=== PATIENT | male | born 1955 | race Caucasian/White ===

== ENCOUNTER 2020-08-24 14:19 | Inpatient (IN) | payer OTHER, SELFPAY ==
[2020-08-24] VITALS (43 sets, daily range): BP systolic 147–185; BP diastolic 80–110; PULSE 85–116; RESP 22–50; TEMP 36.1–38.1; O2SAT 82–98; BMI 37.3
--- NOTE | 2020-08-24 14:27 | DI.RAD.S_ITS ---
PROCEDURE: XR CHEST 1V INDICATIONS: flu-like symptoms COVID POSS TECHNIQUE: One view of the chest was acquired. COMPARISON: None. FINDINGS: Surgical changes and devices: None. Lungs and pleura: Bilateral airspace infiltrates consistent with bilateral pneumonia or pulmonary edema. No pleural effusions or pneumothorax. Mediastinum: Mediastinal contours appear normal. Heart size is moderately increased. Bones and chest wall: No suspicious bony lesions. Overlying soft tissues appear unremarkable. IMPRESSION: Bilateral airspace infiltrates consistent with bilateral pneumonia. There is moderate cardiomegaly. A differential diagnosis is pulmonary edema. Dictated by: Deon De La Cruz M.D. on 08/24/2020 at 15:29 Approved by: Deon De La Cruz M.D. on 08/24/2020 at 15:40
[2020-08-24 14:53] LABS: Add Manual Diff / Slide Review NO; Basophils Absolute Auto 0 /uL (0-100); Basophils Percent Auto 0.2 % (0-2); Eosinophils Absolute Auto 0 /uL (0-450); Hematocrit 42.2 % (41-53); Hemoglobin 14.4 g/dL (13.5-17.5); Lymphocytes Absolute Auto 500 /uL (1100-4500); Lymphocytes Percent Auto 5.3 % (25-40); Mean Corpuscular HGB Conc 34.1 % (30-36); Mean Corpuscular Hemoglobin 28.8 PG (26-34); Mean Corpuscular Volume 84.6 fL (80-100); Monocytes Absolute Auto 400 /uL (0-900); Monocytes Percent Auto 4.6 % (3-14); Neutrophils Absolute Auto 7700 /uL (1500-7000); Neutrophils Percent Auto 89.9 % (50-75); Platelet Count 195 X10^3/uL (150-400); Red Blood Cell Count 4.99 X10^6/uL (4.5-5.9); White Blood Cell Count 8.6 X10^3/uL (4.5-11.0)
[2020-08-24 15:04] LABS: HCO3 ABG 25 mmol/L (22-26); PCO2 ABG 30.1 mmHg (35-45); PO2 ABG 57 mmHg (80-100); pH ABG 7.52 (7.35-7.45)
[2020-08-24 15:05] LABS: Fractionated Inspired Oxygen 44; Oxygen Saturation ABG 93 % (95-100); TCO2 ABG 26 mmol/L (21-31)
--- NOTE | 2020-08-24 15:11 | ED.SOB ---
HPI - SOB/Dyspnea General Chief Complaint: Fever Stated Complaint: REFERRED BY PCP FOR LUNG CHECK, COVID+ Time Seen by Provider: 08/24/20 14:33 Source: patient Mode of arrival: Wheelchair Limitations: no limitations History of Present Illness HPI Narrative: Patient is a 65-year-old male with history of hypertension who presents with known COVID and increasing shortness of breath. He said he actually started having some very mild symptoms about 2 weeks ago however he was in [place] at the time stay return from [place] 1 week ago he was tested 5 days ago and has had progressing increasing shortness of breath. He is noted to have respiratory rate of 50 and an O2 of 82% on room air upon arrival to the emergency department. Immediately he is placed on high-flow nasal cannula and seems to be doing better. He denies any loss of taste or smell. He denies any chest pain. Related Data Home Medications Medication Instructions Recorded Confirmed losartan-hydrochlorothiazide 1 tab PO DAILY 08/24/20 08/24/20 Allergies Allergy/AdvReac Type Severity Reaction Status Date / Time No Known Drug Allergies Allergy Verified 08/24/20 14:26 Review of Systems Review of Systems ROS Unobtainable: All systems reviewed & are unremarkable except as noted in HPI and below Constitutional Constitutional: Reports body ache(s), Reports chills, Reports fatigue, Reports fever(s) and Denies frequent falls Eyes Eyes: Denies change in vision, Denies eye discharge, Denies irritation and Denies loss of vision ENT Ears, Nose, Mouth, and Throat: Denies dizziness Cardiovascular Cardiovascular: Denies chest pain, Denies irregular heart rhythm, Denies lightheadedness, Reports dyspnea and Reports dyspnea on exertion Respiratory Respiratory: Reports as per HPI, Reports cough, Reports dyspnea and Reports dyspnea on exertion Gastrointestinal Gastrointestinal: Denies abdominal pain, Denies change in bowel habits, Denies diarrhea, Denies nausea and Denies vomiting Musculoskeletal Musculoskeletal: Reports myalgias Integumentary/Breasts Skin/Breast: Denies pruritus, Denies erythema, Denies rash and Denies wounds Neurologic Neurologic: Denies abnormal speech, Denies dizziness, Denies frequent falls and Denies loss of vision Endocrine Endocrine: Reports fatigue Patient History Medical History Hypertension Surgical History H/O oral surgery Family History Mother Hypertension Social History Smoking Status: Former smoker Smoking Status: Former smoker alcohol intake frequency: 0-2 drinks per day Substance Use Type: does not use Exam Initial Vital Signs Initial Vital Signs: Vital Signs Temperature 100.5 F H 08/24/20 14:21 Pulse Rate 116 H 08/24/20 14:21 Respiratory Rate 50 H 08/24/20 14:21 Blood Pressure 171/104 H 08/24/20 14:21 Pulse Oximetry 82 L 08/24/20 14:21 GENERAL: Alert 65-year-old male appears to not feel well but now on high-flow nasal cannula and in no acute distress. HEENT: Head atraumatic,EOMI, pupils reactive, face symmetric, moist mucous membranes CARDIOVASCULAR: Regular rate and rhythm without murmurs, rubs or gallops. RESPIRATORY: Coarse breath sounds bilaterally, seems to be breathing easier now on high-flow nasal cannula ABDOMEN: Soft, nontender. Normoactive bowel sounds all 4 quadrants. No guarding or rebound. EXTREMITIES: Normal range of motion, no clubbing or edema. Neurovascularly intact NEUROLOGICAL: Alert and oriented x4 SKIN: Warm, dry, no laceration, no petechiae, no rashes or lesions. Course Orders Ordered: ED Orders 08/24/20 14:27 XR chest 1V Stat EKG-12 Lead Stat 08/24/20 14:40 C-Reactive Protein Quant Stat Complete Blood Count AUTO DIFF Stat Comprehensive Metabolic Panel Stat D Dimer Stat Ferritin Stat Lactate (Lactic Acid) Stat Lactate Dehydrogenase Stat NT-proBNP (BNP-Adult 18+) Stat Procalcitonin Stat Troponin & CK Cardiac Panel Stat 08/24/20 14:48 ABG [Arterial Blood Gas] Stat Blood Culture Stat Acetaminophen (Acetaminophen 325 Mg Tablet) 650 mg PO Q6HR PRN PRN Reason: Fever/Mild Pain (1-3) Dexamethasone (Dexamethasone 10 Mg/Ml Vial) 6 mg IV DAILY CARMELA Enoxaparin Sodium (Enoxaparin 60 Mg/0.6 Ml Syringe) 120 mg SUBCUT BID CARMELA Remdesivir 100 mg/ Sodium (Chloride) 250 mls @ 250 mls/hr IV 1500 CARMELA Stop: 09/02/20 15:59 Ibuprofen (Ibuprofen 600 Mg Tablet) 600 mg PO Q6HR PRN PRN Reason: Fever/Mild Pain (1-3) Naloxone HCl (Naloxone 0.4 Mg/Ml Vial) 0.2 mg IV Q2MIN PRN PRN Reason: Opiate Reversal Ondansetron HCl (Ondansetron 4 Mg Odt) 4 mg PO Q8HR PRN PRN Reason: Nausea And Vomiting Oxycodone HCl (Oxycodone Ir 5 Mg Tablet) 5 mg PO Q4HR PRN PRN Reason: Pain, Moderate (4-6) Discontinued Medications Dexamethasone (Dexamethasone 10 Mg/Ml Vial) 10 mg IV NOW ONE Stop: 08/24/20 15:14 Last Admin: 08/24/20 15:18 Dose: 10 mg Documented by: BETHANY Enoxaparin Sodium (Enoxaparin 40 Mg/0.4 Ml Syringe) 40 mg SUBCUT DAILY [facility] Furosemide (Furosemide 20 Mg Tablet) 20 mg PO NOW ONE Stop: 08/24/20 17:33 Sodium Chloride (Normal Saline 0.9%) 1,000 mls @ 125 mls/hr IV CONT CARMELA Last Infusion: 08/24/20 18:05 Dose: 0 mls/hr Documented by: Admin: 08/24/20 15:18 Dose: 125 mls/hr Documented by: BETHANY Remdesivir 200 mg/ Sodium (Chloride) 250 mls @ 250 mls/hr IV NOW ONE Stop: 08/24/20 15:14 Last Infusion: 08/24/20 17:02 Dose: 0 mls/hr Documented by: Admin: 08/24/20 15:33 Dose: 250 mls/hr Documented by: BETHANY Potassium Chloride (Potassium Chloride 20 Meq Tab) 40 meq PO NOW ONE Stop: 08/24/20 16:49 Last Admin: 08/24/20 18:05 Dose: 40 meq Documented by: BETHANY Vital Signs Vital signs: Vital Signs - 8 hr 08/24/20 14:21 08/24/20 14:30 08/24/20 14:46 Temperature 100.5 F H Pulse Rate 116 H 108 H 112 H Respiratory Rate 50 H 48 H 35 H Blood Pressure 171/104 H 165/101 H Pulse Oximetry 82 L 85 L 91 08/24/20 14:50 08/24/20 14:55 08/24/20 15:00 Temperature Pulse Rate 110 H 108 H 101 H Respiratory Rate 31 H 25 H 26 H Blood Pressure 166/93 H Pulse Oximetry 92 88 L 96 08/24/20 15:05 08/24/20 15:10 08/24/20 15:15 Temperature Pulse Rate 108 H 111 H 109 H Respiratory Rate 32 H 28 H 24 Blood Pressure 168/110 H Pulse Oximetry 95 96 98 08/24/20 15:20 08/24/20 15:25 08/24/20 15:30 Temperature Pulse Rate 110 H 109 H 105 H Respiratory Rate 23 30 H 24 Blood Pressure Pulse Oximetry 98 97 97 MDM - SOB/Dyspnea Lab Data Attestation: I reviewed the patient's lab results. Result diagrams: 08/24/20 14:40 08/24/20 14:40 Labs: Lab Results 08/24/20 08/24/20 08/24/20 Range/Units 14:40 14:40 14:40 WBC 8.6 (4.5-11.0) X10^3/uL RBC 4.99 (4.5-5.9) X10^6/uL Hgb 14.4 (13.5-17.5) g/dL Hct 42.2 (41-53) % MCV 84.6 (80-100) fL MCH 28.8 (26-34) PG MCHC 34.1 (30-36) % RDW 14.0 (11.6-14.8) % Plt Count 195 (150-400) X10^3/uL Neut % (Auto) 89.9 H (50-75) % Lymph % (Auto) 5.3 L (25-40) % [place] % (Auto) 4.6 (3-14) % Eos % (Auto) 0.0 L (2-4) % Baso % (Auto) 0.2 (0-2) % Neut # (Auto) 7700 H (0910-3566) /uL Lymph # (Auto) 500 L (9634-6650) /uL [place] # (Auto) 400 (0-900) /uL Eos # (Auto) 0 (0-450) /uL Baso # (Auto) 0 (0-100) /uL D-Dimer 634 H (<230) ng/mL ABG pH (7.35-7.45) ABG pCO2 (35-45) mmHg ABG pO2 (80-100) mmHg ABG HCO3 (22-26) mmol/L ABG Total CO2 (21-31) mmol/L ABG O2 Saturation (95-100) % ABG Base Excess (-2-2) mmol/L FiO2 Sodium (137-145) mmol/L Potassium (3.4-5.1) mmol/L Chloride (98-107) mmol/L Carbon Dioxide (22-32) mmol/L BUN (9-20) mg/dL Creatinine (0.66-1.25) mg/dL Estimated GFR (>60) mL/min BUN/Creatinine Ratio (6-22) Glucose (80-110) mg/dL Lactate (0.7-2.1) mmol/L Calcium (8.4-10.2) mg/dL Ferritin (18-464) ng/mL Total Bilirubin (0.2-1.3) mg/dL AST (17-59) IU/L ALT (<50) IU/L Alkaline Phosphatase (38-126) U/L Lactate Dehydrogenase (313-618) U/L Total Creatine Kinase (55-170) U/L CK-MB (CK-2) (<2.37) ng/mL CK-MB (CK-2) Rel Index (1.5-5.0) % Troponin I (0.01-0.034) ng/mL C-Reactive Protein (<1.0) mg/dL NT-Pro-B Natriuret Pep (<125) pg/mL Total Protein (6.3-8.2) g/dL Albumin (3.5-5.0) g/dL Globulin (1.7-4.1) g/dL Albumin/Globulin Ratio (1.0-2.8) Procalcitonin 0.42 (<0.5) ng/mL 08/24/20 08/24/20 08/24/20 Range/Units 14:40 14:40 14:48 WBC (4.5-11.0) X10^3/uL RBC (4.5-5.9) X10^6/uL Hgb (13.5-17.5) g/dL Hct (41-53) % MCV (80-100) fL MCH (26-34) PG MCHC (30-36) % RDW (11.6-14.8) % Plt Count (150-400) X10^3/uL Neut % (Auto) (50-75) % Lymph % (Auto) (25-40) % [place] % (Auto) (3-14) % Eos % (Auto) (2-4) % Baso % (Auto) (0-2) % Neut # (Auto) (1422-2601) /uL Lymph # (Auto) (4220-8359) /uL [place] # (Auto) (0-900) /uL Eos # (Auto) (0-450) /uL Baso # (Auto) (0-100) /uL D-Dimer (<230) ng/mL ABG pH 7.52 H (7.35-7.45) ABG pCO2 30.1 L (35-45) mmHg ABG pO2 57 L (80-100) mmHg ABG HCO3 25 (22-26) mmol/L ABG Total CO2 26 (21-31) mmol/L ABG O2 Saturation 93 L (95-100) % ABG Base Excess 2.0 (-2-2) mmol/L FiO2 44 Sodium 136 L (137-145) mmol/L Potassium 3.2 L (3.4-5.1) mmol/L Chloride 101 (98-107) mmol/L Carbon Dioxide 28 (22-32) mmol/L BUN 14 (9-20) mg/dL Creatinine 0.75 (0.66-1.25) mg/dL Estimated GFR > 60.0 (>60) mL/min BUN/Creatinine Ratio 18.7 (6-22) Glucose 156 H (80-110) mg/dL Lactate 2.0 (0.7-2.1) mmol/L Calcium 8.5 (8.4-10.2) mg/dL Ferritin 1620 H (18-464) ng/mL Total Bilirubin 0.9 (0.2-1.3) mg/dL AST 96 H (17-59) IU/L ALT 58 H (<50) IU/L Alkaline Phosphatase 111 (38-126) U/L Lactate Dehydrogenase 1902 H (313-618) U/L Total Creatine Kinase 704 H (55-170) U/L CK-MB (CK-2) 0.99 (<2.37) ng/mL CK-MB (CK-2) Rel Index 0.1 L (1.5-5.0) % Troponin I < 0.012 (0.01-0.034) ng/mL C-Reactive Protein 17.9 H (<1.0) mg/dL NT-Pro-B Natriuret Pep 207 H (<125) pg/mL Total Protein 6.9 (6.3-8.2) g/dL Albumin 3.7 (3.5-5.0) g/dL Globulin 3.2 (1.7-4.1) g/dL Albumin/Globulin Ratio 1.2 (1.0-2.8) Procalcitonin (<0.5) ng/mL Imaging Data Chest x-ray: Radiologist's Impression: ROCEDURE: XR CHEST 1V INDICATIONS: flu-like symptoms COVID POSS TECHNIQUE: One view of the chest was acquired. COMPARISON: None. FINDINGS: Surgical changes and devices: None. Lungs and pleura: Bilateral airspace infiltrates consistent with bilateral pneumonia or pulmonary edema. No pleural effusions or pneumothorax. Mediastinum: Mediastinal contours appear normal. Heart size is moderately increased. Bones and chest wall: No suspicious bony lesions. Overlying soft tissues appear unremarkable. IMPRESSION: Bilateral airspace infiltrates consistent with bilateral pneumonia. There is moderate cardiomegaly. A differential diagnosis is pulmonary edema. Dictated by: Deon De La Cruz M.D. on 08/24/2020 at 15:29 ECG Data Attestation: I personally reviewed and interpreted this ECG as follows: Prior ECG tracings: not available for review Interpretation: Sinus rhythm rate 110 S wave in lead 1 Q-wave in lead 3 with T-wave inversion in lead 3 as well. P.r. 164 QRS 80. MDM Narrative Medical decision making narrative: The patient initially doing much better on high-flow nasal cannula. He is given removed is a mere and dexamethasone. His D-dimer mildly elevated at 634 thought to be from COVID. However he did have recent travel is from [place]. Discussed case with Dr. Quiroz is. At this time patient likely does need a chest CT but this can be done on the floor. Dr. Quiroz agrees with no treatment at this time and wait for CT results. He actually does have some EKG changes which may support PE. Critical Care Time Critical Care Time Critical Care Time: Yes Total Critical Care Time: 45 Attestation: The high probability of a clinically significant, sudden or life threatening deterioration of the [cardiovascular] system(s) required my full and direct attention, intervention and personal management. The aggregate critical care time was [45] minutes. This time is in addition to time spent performing reported procedures but includes the following: [x] Data Review and interpretation [x] Patient assessment and monitoring of vital signs [x] Documentation [x] Medication orders and management Discharge Plan Departure Patient Disposition: Admitted As Inpatient Clinical Impression: COVID-19 Admit Date/Time: 08/24/20 15:30 Admit Provider: Diogenes Quiroz
[2020-08-24 15:13] LABS: D Dimer 634 ng/mL (<230)
[2020-08-24] MEDS: SODIUM CHLORIDE 0.9% 1,000 ML 125 ML IV (15:18)
[2020-08-24] MEDS: DEXAMETHASONE 10 MG/ML VIAL IV (15:18)
[2020-08-24 15:19] LABS: Alanine Aminotransferase 58 IU/L (<50); Albumin 3.7 g/dL (3.5-5.0); Albumin Globulin Ratio 1.2 (1.0-2.8); Alkaline Phosphatase 111 U/L (38-126); Aspartate Aminotransferase 96 IU/L (17-59); BUN Creatinine Ratio 18.7 (6-22); Bilirubin Total 0.9 mg/dL (0.2-1.3); Blood Urea Nitrogen 14 mg/dL (9-20); Calcium 8.5 mg/dL (8.4-10.2); Carbon Dioxide 28 mmol/L (22-32); Chloride 101 mmol/L (98-107); Creatine Kinase 704 U/L (55-170); Estimated Glomerular Filt Rate > 60.0 mL/min (>60); Globulin 3.2 g/dL (1.7-4.1); Glucose 156 mg/dL (80-110); HEMOLYSIS < 15 (0-50); Lactate Dehydrogenase 1902 U/L (313-618); Potassium 3.2 mmol/L (3.4-5.1); Sodium 136 mmol/L (137-145); Total Protein 6.9 g/dL (6.3-8.2)
[2020-08-24 15:28] LABS: NT-proBNP (BNP-Adult 18+) 207 pg/mL (<125); Troponin I < 0.012 ng/mL (0.01-0.034)
[2020-08-24 15:30] LABS: C-Reactive Protein Quant 17.9 mg/dL (<1.0)
[2020-08-24 15:31] LABS: CKMB % Relative Index 0.1 % (1.5-5.0); Creatine Kinase MB 0.99 ng/mL (<2.37)
[2020-08-24] MEDS: REMDESIVIR 200 MG in SODIUM CHLORIDE 0.9% 210 ML 250 ML IV (15:33)
[2020-08-24 16:19] LABS: Procalcitonin 0.42 ng/mL (<0.5)
[2020-08-24 16:41] LABS: Ferritin 1620 ng/mL (18-464)
[2020-08-24 16:46] LABS: Reflexed Lactate in 2 Hours Y
[2020-08-24 17:20] LABS: Lactate 2HR (Lactic Acid Rflx) 1.3 mmol/L (0.7-2.1)
--- NOTE | 2020-08-24 17:36 | P.HP_ITS ---
History of Present Illness History of Present Illness Date Patient Seen: 08/24/20 Time Patient Seen: 17:36 Chief complaint: REFERRED BY PCP FOR LUNG CHECK, COVID+ Narrative: José Miguel Cabrera is a 65-year-old male with a past medical history of hypertension who presented to the emergency room with shortness of breath. Patient's symptoms initially started about 2 weeks ago with cough, fevers, and nasal congestion. He presumed he had COVID but was actually starting to feel better. He had been in [place] for the prior 5 months as the patient lives [place] there during the winter. His was able to obtain the COVID-19 vaccine because she was considered to be in a high-risk population, however the patient did not qualify for the vaccine yet. They both drove up from [place] last weekend. He obtained COVID-19 testing the day after he arrives which resulted with a positive test. His was also tested and was positive but has milder symptoms. This morning he woke up with worsened shortness of breath which he had not previously experienced, and was referred to the emergency room for further evaluation. The patient's primary care provider is in [place], whom he saw approximately 6 months ago. He has some chest pain primarily with coughing, but not at rest and not with exertion. He denies any palpitations, diaphoresis, nausea, vomiting, diarrhea. He denies any loss in his taste or smell. In the emergency room, he was markedly tachypneic, and hypoxic. O2 saturation on arrival was 82%. He was rapidly increased and placed on heated high-flow nasal cannula, 45 liters/minute at 70% with rapid improvement in his breathing. He was borderline febrile with a temperature of a 100.5?, mildly hypertensive. Initial laboratory evaluation shows an unremarkable CBC, D-dimer mildly elevated at 634 but below an age-appropriate cut off, ferritin of 1620, mild transaminitis with AST and ALT less than 100. LDH was elevated at 1902. CRP was elevated at 17.9. ProBNP was mildly elevated at 207. Procalcitonin was indeterminate at 0.42. Chest x-ray shows bilateral opacities consistent with a viral pneumonia and COVID-19. Patient History Medical History Hypertension Surgical History H/O oral surgery Family & Social History Family History Mother Hypertension Safety & Behavioral: Feels Safe in Current Yes Environment Been Physically Hurt or No Threatened By a Person Tobacco & Substance use: Smoking Status Former smoker alcohol intake frequency 0-2 drinks per day Substance Use Type does not use Meds Home Medications and Allergies Home Medications Medication Instructions Recorded Confirmed Type losartan-hydrochlorothiazide 1 tab PO DAILY 08/24/20 08/24/20 History Allergies Allergy/AdvReac Type Severity Reaction Status Date / Time No Known Drug Allergies Allergy Verified 08/24/20 14:26 Review of Systems Review of Systems Narrative: All other systems reviewed with the patient and are negative unless otherwise stated. Exam Vital Signs (past 8 hours): - 08/24/20 14:21 08/24/20 14:30 08/24/20 14:46 Temperature 100.5 F H Pulse Rate 116 H 108 H 112 H Respiratory Rate 50 H 48 H 35 H Blood Pressure 171/104 H 165/101 H Pulse Oximetry 82 L 85 L 91 08/24/20 14:50 08/24/20 14:55 08/24/20 15:00 Temperature Pulse Rate 110 H 108 H 101 H Respiratory Rate 31 H 25 H 26 H Blood Pressure 166/93 H Pulse Oximetry 92 88 L 96 08/24/20 15:05 08/24/20 15:10 08/24/20 15:15 Temperature Pulse Rate 108 H 111 H 109 H Respiratory Rate 32 H 28 H 24 Blood Pressure 168/110 H Pulse Oximetry 95 96 98 08/24/20 15:20 08/24/20 15:25 08/24/20 15:30 Temperature Pulse Rate 110 H 109 H 105 H Respiratory Rate 23 30 H 24 Blood Pressure Pulse Oximetry 98 97 97 08/24/20 15:31 08/24/20 15:35 08/24/20 15:40 Temperature Pulse Rate 105 H 106 H 103 H Respiratory Rate 24 25 H 28 H Blood Pressure 168/86 H Pulse Oximetry 97 98 97 08/24/20 15:45 08/24/20 15:50 08/24/20 15:55 Temperature Pulse Rate 104 H 101 H 102 H Respiratory Rate 26 H 31 H 29 H Blood Pressure 166/93 H Pulse Oximetry 96 96 96 08/24/20 16:00 08/24/20 16:05 08/24/20 16:10 Temperature Pulse Rate 101 H 102 H 100 H Respiratory Rate 27 H 32 H 25 H Blood Pressure 175/92 H Pulse Oximetry 97 95 95 08/24/20 16:15 08/24/20 16:20 08/24/20 16:25 Temperature Pulse Rate 97 H 98 H 96 H Respiratory Rate 27 H 28 H 33 H Blood Pressure 147/80 H Pulse Oximetry 96 94 94 08/24/20 16:30 08/24/20 16:45 08/24/20 17:00 Temperature Pulse Rate 96 H 94 H 97 H Respiratory Rate 27 H 30 H 26 H Blood Pressure 154/84 H 155/86 H 157/92 H Pulse Oximetry 94 94 95 Fraction of Inspired Oxygen 70 Oxygen Delivery Method Heated High Flow Oxygen Flow Rate 45 Narrative Exam Narrative: GENERAL APPEARANCE: Well developed, well nourished, in no acute distress on heated high-flow via nasal cannula. SKIN: Inspection of the skin reveals no rashes, ulcerations or petechiae. HEENT: Normocephalic atraumatic, extraocular muscles are intact, oropharynx is clear and mucous membranes are moist, neck is supple without adenopathy NECK: Supple and symmetric. There was no thyroid enlargement, and no tenderness, or masses were felt. CHEST: Normal AP diameter and normal contour without any kyphoscoliosis. LUNGS: Diminished breath sounds bilaterally at the lung bases with mild bibasilar crackles although limited by available disposable stethascope. CARDIOVASCULAR: There was a regular rate and rhythm without any murmurs, gallops, rubs. Peripheral pulses were 2+ and symmetric. ABDOMEN: Soft and nontender with normal bowel sounds. No ascites was noted. MUSCULOSKELETAL: There was no tenderness or effusions noted. Muscle strength and tone were normal. EXTREMITIES: No cyanosis, clubbing. Trace pedal edema. NEUROLOGIC: Alert and oriented x 3. Normal affect. Strength is +5/5 in the Upper Extremities and Lower Extremities Bilaterally. Sensation to touch was normal. Objective ECG Impression: S1Q3T3 pattern noted on EKG, Otherwise sinus tachycardia. Imaging Chest x-ray: Radiologist's impression: PROCEDURE: XR CHEST 1V INDICATIONS: flu-like symptoms COVID POSS TECHNIQUE: One view of the chest was acquired. COMPARISON: None. FINDINGS: Surgical changes and devices: None. Lungs and pleura: Bilateral airspace infiltrates consistent with bilateral pne umonia or pulmonary edema. No pleural effusions or pneumothorax. Mediastinum: Mediastinal contours appear normal. Heart size is moderately increased. Bones and chest wall: No suspicious bony lesions. Overlying soft tissues appear unremarkable. IMPRESSION: Bilateral airspace infiltrates consistent with bilateral pneumonia. There is moderate cardiomegaly. A differential diagnosis is pulmonary edema. Labs Result Diagrams: 08/24/20 14:40 08/24/20 14:40 Labs: Laboratory Results - last 24 hr 08/24/20 08/24/20 08/24/20 14:40 14:40 14:40 WBC 8.6 RBC 4.99 Hgb 14.4 Hct 42.2 MCV 84.6 MCH 28.8 MCHC 34.1 RDW 14.0 Plt Count 195 Neut % (Auto) 89.9 H Lymph % (Auto) 5.3 L [place] % (Auto) 4.6 Eos % (Auto) 0.0 L Baso % (Auto) 0.2 Neut # (Auto) 7700 H Lymph # (Auto) 500 L [place] # (Auto) 400 Eos # (Auto) 0 Baso # (Auto) 0 D-Dimer 634 H ABG pH ABG pCO2 ABG pO2 ABG HCO3 ABG Total CO2 ABG O2 Saturation ABG Base Excess FiO2 Sodium Potassium Chloride Carbon Dioxide BUN Creatinine Estimated GFR BUN/Creatinine Ratio Glucose Lactate Calcium Ferritin Total Bilirubin AST ALT Alkaline Phosphatase Lactate Dehydrogenase Total Creatine Kinase CK-MB (CK-2) CK-MB (CK-2) Rel Index Troponin I C-Reactive Protein NT-Pro-B Natriuret Pep Total Protein Albumin Globulin Albumin/Globulin Ratio Procalcitonin 0.42 08/24/20 08/24/20 08/24/20 14:40 14:40 14:48 WBC RBC Hgb Hct MCV MCH MCHC RDW Plt Count Neut % (Auto) Lymph % (Auto) [place] % (Auto) Eos % (Auto) Baso % (Auto) Neut # (Auto) Lymph # (Auto) [place] # (Auto) Eos # (Auto) Baso # (Auto) D-Dimer ABG pH 7.52 H ABG pCO2 30.1 L ABG pO2 57 L ABG HCO3 25 ABG Total CO2 26 ABG O2 Saturation 93 L ABG Base Excess 2.0 FiO2 44 Sodium 136 L Potassium 3.2 L Chloride 101 Carbon Dioxide 28 BUN 14 Creatinine 0.75 Estimated GFR > 60.0 BUN/Creatinine Ratio 18.7 Glucose 156 H Lactate 2.0 Calcium 8.5 Ferritin 1620 H Total Bilirubin 0.9 AST 96 H ALT 58 H Alkaline Phosphatase 111 Lactate Dehydrogenase 1902 H Total Creatine Kinase 704 H CK-MB (CK-2) 0.99 CK-MB (CK-2) Rel Index 0.1 L Troponin I < 0.012 C-Reactive Protein 17.9 H NT-Pro-B Natriuret Pep 207 H Total Protein 6.9 Albumin 3.7 Globulin 3.2 Albumin/Globulin Ratio 1.2 Procalcitonin 08/24/20 16:55 WBC RBC Hgb Hct MCV MCH MCHC RDW Plt Count Neut % (Auto) Lymph % (Auto) [place] % (Auto) Eos % (Auto) Baso % (Auto) Neut # (Auto) Lymph # (Auto) [place] # (Auto) Eos # (Auto) Baso # (Auto) D-Dimer ABG pH ABG pCO2 ABG pO2 ABG HCO3 ABG Total CO2 ABG O2 Saturation ABG Base Excess FiO2 Sodium Potassium Chloride Carbon Dioxide BUN Creatinine Estimated GFR BUN/Creatinine Ratio Glucose Lactate 1.3 Calcium Ferritin Total Bilirubin AST ALT Alkaline Phosphatase Lactate Dehydrogenase Total Creatine Kinase CK-MB (CK-2) CK-MB (CK-2) Rel Index Troponin I C-Reactive Protein NT-Pro-B Natriuret Pep Total Protein Albumin Globulin Albumin/Globulin Ratio Procalcitonin Assessment & Plan Assessment & Plan narrative: José Miguel Cabrera is a 65-year-old male with a past medical history of hypertension who presented to the emergency room with shortness of breath. He is admitted with acute hypoxic respiratory failure most probably from COVID-19 pneumonia. 1. Acute hypoxic respiratory failure, present on admission -patient's initial symptoms started over 2 weeks ago with recent worsening of shortness of breath. Officially diagnosed 5-6 days previously in [place]. In the ER patient 82% on room air, now requiring heated hi-flow oxygen on admission. - Repeat respiratory panel to assess for other viral etiologies was negative other than for known COVID-19 infection. - S1Q3T3 pattern on EKG with borderline d-dimer on admission. Given findings and relatively late onset CT angiogram was ordered which was negative for PE but does show severe COVID disease. - patient mildly hypertensive, and reports some orthopnea with trace LE edema on exam. ProBNP very minimally elevated. Will trial some oral lasix at this time to see if this will assist with his symptoms. Unable to obtain TTE given COVID + status. - RT evaluation and treatment. - continue remdesevir and dexamethasone for severe COVID 19 infection. - continue to follow inflammatory markers with tomorrow's labs. 2. COVID 19 pneumonia - management as noted above. 3. HTN, chronic - will hold home losartan-hctz for now. Will start with lasix as noted above and re-assess to see if symptoms improve. Will continue to monitor BP as well given severity of inflammatory markers and degree of pulmonary involvement. DVT: Lovenox daily Dispo: admitted under inpatient status as his stay is expected to exceed two midnights. Code: Full, surrogate decision maker he states is his .
--- NOTE | 2020-08-24 17:57 | DI.CT.S_ITS ---
PROCEDURE: CT ANGIO CHEST PE PROTOCOL INDICATIONS: COVID +, r/o PE, s1q3t3 on EKG and borderline d-dimer TECHNIQUE: After the administration of intravenous contrast, 2 mm thick sections acquired from the pulmonary apices to the posterior costophrenic angles. 3-dimensional maximum intensity projection (MIP) coronal and sagittal reformats were then acquired through the thorax. For radiation dose reduction, the following was used: automated exposure control, adjustment of mA and/or kV according to patient size. COMPARISON: None. FINDINGS: Image quality: Excellent. Pulmonary arteries: Pulmonary arteries are normal in size, and demonstrate no intraluminal filling defects to suggest central pulmonary embolism. Lungs and pleura: Lungs are abnormal with patchy bilateral alveolar airspace disease involving upper, middle, and lower thirds of the lung parenchyma bilaterally. The patient is reportedly positive for atypical/viral pneumonia, and the CT prior appearance is consistent with that diagnosis.. No pleural effusions or pneumothorax. Central and peripheral airways are patent. Mediastinum: Heart size is normal, without pericardial effusion. No mediastinal or hilar adenopathy. Thoracic aorta is normal in caliber and enhancement. Esophagus is normal in caliber, without hiatal hernia. Bones and chest wall: No suspicious bony lesions. Ribs and thoracic spine appear intact throughout. Thyroid gland appears normal where well seen. No axillary or supraclavicular adenopathy. Abdomen: Visualized upper abdominal solid organs appear normal in the early arterial phase of enhancement. IMPRESSION: No pulmonary embolus found. Moderately severe to severe atypical/viral pneumonia. No area of lung necrosis or pleural effusion found. Dictated by: Oscar Garza M.D. on 08/24/2020 at 19:25 Approved by: Oscar Garza M.D. on 08/24/2020 at 19:27
[2020-08-24] MEDS: POTASSIUM CHLORIDE 20 MEQ TAB 40 MEQ PO (18:05)
[2020-08-24 19:40] LABS: Adenovirus Not Detected (Not Detect)
[2020-08-24 19:41] LABS: B. parapertussis Not Detected (Not Detecte); Bordetella pertussis Not Detected (Not Detecte); Chlamydophila pneumoniae Not Detected (Not Detect); Coronavirus 229E Not Detected (Not Detect); Coronavirus HKU1 Not Detected (Not Detect); Coronavirus NL 63 Not Detected (Not Detect); Coronavirus OC43 Not Detected (Not Detect); Human Metapneumovirus Not Detected (Not Detect); Human Rhinovirus/Enterovirus Not Detected (Not Detect); Influenza A Not Detected (Not Detect); Influenza B Not Detected (Not Detect); Mycoplasma pneumoniae Not Detected (Not Detect); Parainfluenza Virus 1 Not Detected (Not Detect); Parainfluenza Virus 2 Not Detected (Not Detect); Parainfluenza Virus 3 Not Detected (Not Detect); Parainfluenza Virus 4 Not Detected (Not Detect); Respiratory Syncytial Virus Not Detected (Not Detect)
[2020-08-24] MEDS: FUROSEMIDE 20 MG TABLET PO (19:41)
[2020-08-24 19:46] LABS: SARS- CoV-2 Detected (Not Detecte)
--- NOTE | 2020-08-24 22:59 | PC.NURSE ---
Patient admitted from ER for SOB secondary to COVID. A/Ox4. Placed on tele, no IV fluids ordered. Patient is steady standing to use urinal. Patient only takes medications for BP but has not taken them in awhile because he ran out. Lungs are diminished, patient is on HHF 45L, 73% FiO2 and has been prone since 0. No issues with skin. Last BM was this morning. Patient oriented to room and call light.
[2020-08-25] VITALS (85 sets, daily range): BP systolic 116–171; BP diastolic 68–103; PULSE 71–111; RESP 8–41; TEMP 36.6–37.1; O2SAT 84–96
[2020-08-25 05:06] LABS: D Dimer 627 ng/mL (<230)
[2020-08-25 05:23] LABS: Alanine Aminotransferase 54 IU/L (<50); Albumin 3.2 g/dL (3.5-5.0); Albumin Globulin Ratio 1.1 (1.0-2.8); Alkaline Phosphatase 91 U/L (38-126); Aspartate Aminotransferase 73 IU/L (17-59); BUN Creatinine Ratio 23.8 (6-22); Bilirubin Total 0.5 mg/dL (0.2-1.3); Blood Urea Nitrogen 19 mg/dL (9-20); Calcium 8.3 mg/dL (8.4-10.2); Carbon Dioxide 30 mmol/L (22-32); Chloride 105 mmol/L (98-107); Estimated Glomerular Filt Rate > 60.0 mL/min (>60); Globulin 2.9 g/dL (1.7-4.1); Glucose 151 mg/dL (80-110); HEMOLYSIS < 15 (0-50); Magnesium 2.3 mg/dL (1.6-2.3); Potassium 4.2 mmol/L (3.4-5.1); Sodium 140 mmol/L (137-145); Total Protein 6.1 g/dL (6.3-8.2)
[2020-08-25 05:25] LABS: Lactate Dehydrogenase 1596 U/L (313-618)
[2020-08-25 05:41] LABS: C-Reactive Protein Quant 17.7 mg/dL (<1.0)
--- NOTE | 2020-08-25 06:21 | PC.NURSE ---
[employer] Machine Operator Note-Patient is A/Ox4, has shortness with exertion, ambulated into BR, desat to 86% on HHFNC 45L/72% FIO2, recovers well, RR 20s, intermittent dry cough, denies pain. SR/ST, HTN, afebrile, see vital trends, MD note states patient will be restarted on losartan/HCTZ. Patient is compliant with proning and side-lying.
[2020-08-25 06:45] LABS: Ferritin 1580 ng/mL (18-464)
[2020-08-25] MEDS: ENOXAPARIN 40 MG/0.4 ML SYRINGE SUBCUT (09:07)
[2020-08-25] MEDS: SODIUM CHLORIDE 0.9% FLUSH 10 ML IV ×2 (09:07→21:45)
[2020-08-25] MEDS: DEXAMETHASONE 10 MG/ML VIAL 6 MG IV (09:07)
--- NOTE | 2020-08-25 09:12 | DIET.PN ---
Dietary Progress Note RD Note: Pt to receive ONS Ensure Max c lunches to support high protein needs in bariatric friendly formula. Pt renal fxn WNL.
--- NOTE | 2020-08-25 13:41 | PC.NURSE ---
Day Shift Note Pt proning throughout shift except for mealtimes. Heated HFNC in place, increased to 55L and 85% FiO2 at about 1000 by RT to maintain oxygenation above 90% while proning. SOB with exertion, reports feels no worse than when he came in. SpO2 90-94%. RR in the 20s. SR in the 80s - 90s. BP elevated in the 160s systolic, pt requesting home BP meds. Dr. Quiroz notified and aware. , Amie, updated via phone. Call light within reach, using appropriately to make needs known.
--- NOTE | 2020-08-25 14:30 | P.PN_ITS ---
Subjective Subjective Date Patient Seen: 08/25/20 Time Patient Seen: 14:31 Interval history: This is a 65-year-old gentleman with a past medical history of hypertension who is admitted for COVID pneumonia and acute hypoxic respiratory failure. Patient was relatively stable overnight, slight increase in his oxygen requirements today. He continues to prone as much as possible. He feels no different is far as his shortness of breath today. He denies any chest pain, palpitations, nausea, vomiting, or abdominal pain. Inflammatory markers are slightly improved or very stable today. Exam Vital Signs (past 8 hours): - 08/25/20 07:00 08/25/20 08:25 08/25/20 10:10 Temperature 98.5 F Pulse Rate 92 H 87 Respiratory Rate 19 30 H Blood Pressure 171/91 H 166/90 H Pulse Oximetry 89 L 90 L 92 08/25/20 10:54 08/25/20 12:16 Temperature 98.7 F Pulse Rate 93 H 97 H Respiratory Rate 27 H 19 Blood Pressure 166/90 H 167/94 H Pulse Oximetry 90 L 92 Fraction of Inspired Oxygen 0.89 Oxygen Delivery Method Heated High Flow Oxygen Flow Rate 55 Narrative Exam Narrative: GENERAL APPEARANCE: Well developed, well nourished, in no acute distress on heated high-flow via nasal cannula. SKIN: Inspection of the skin reveals no rashes, ulcerations or petechiae. HEENT: Normocephalic atraumatic, extraocular muscles are intact, oropharynx is clear and mucous membranes are moist, neck is supple without adenopathy NECK: Supple and symmetric. There was no thyroid enlargement, and no tenderness, or masses were felt. CHEST: Normal AP diameter and normal contour without any kyphoscoliosis. LUNGS: Diminished breath sounds bilaterally at the lung bases with mild bibasilar crackles although limited by available disposable stethascope. CARDIOVASCULAR: There was a regular rate and rhythm without any murmurs, gallops, rubs. Peripheral pulses were 2+ and symmetric. ABDOMEN: Soft and nontender with normal bowel sounds. No ascites was noted. MUSCULOSKELETAL: There was no tenderness or effusions noted. Muscle strength and tone were normal. EXTREMITIES: No cyanosis, clubbing. trace to 1+ lower extremity edema, slightly increased today. NEUROLOGIC: Alert and oriented x 3. Normal affect. Strength is +5/5 in the Upper Extremities and Lower Extremities Bilaterally. Sensation to touch was normal. Objective Labs Result Diagrams: 08/24/20 14:40 08/25/20 04:10 Labs: Laboratory Results - last 24 hr 08/24/20 08/24/20 08/24/20 14:40 14:40 14:40 WBC 8.6 RBC 4.99 Hgb 14.4 Hct 42.2 MCV 84.6 MCH 28.8 MCHC 34.1 RDW 14.0 Plt Count 195 Neut % (Auto) 89.9 H Lymph % (Auto) 5.3 L [place] % (Auto) 4.6 Eos % (Auto) 0.0 L Baso % (Auto) 0.2 Neut # (Auto) 7700 H Lymph # (Auto) 500 L [place] # (Auto) 400 Eos # (Auto) 0 Baso # (Auto) 0 D-Dimer 634 H ABG pH ABG pCO2 ABG pO2 ABG HCO3 ABG Total CO2 ABG O2 Saturation ABG Base Excess FiO2 Sodium Potassium Chloride Carbon Dioxide BUN Creatinine Estimated GFR BUN/Creatinine Ratio Glucose Lactate Calcium Magnesium Ferritin Total Bilirubin AST ALT Alkaline Phosphatase Lactate Dehydrogenase Total Creatine Kinase CK-MB (CK-2) CK-MB (CK-2) Rel Index Troponin I C-Reactive Protein NT-Pro-B Natriuret Pep Total Protein Albumin Globulin Albumin/Globulin Ratio Procalcitonin 0.42 Nasal Screen MRSA (PCR) Chlamy pneumoniae PCR Adenovirus (PCR) B. pertussis DNA (PCR) B.parapertussis DNA PCR Coronavirus OC43 (PCR) Coronavirus HKU1 (PCR) Coronavirus 229E (PCR) SARS-CoV-2 (PCR) Coronavirus NL63 (PCR) Human Metapneumovir PCR Influenza Type A (PCR) Influenza Type B (PCR) M. pneumoniae (PCR) Parainfluenza 1 (PCR) Parainfluenza 2 (PCR) Parainfluenza 3 (PCR) Parainfluenza 4 (PCR) RSV (PCR) Entero/Rhino (PCR) 08/24/20 08/24/20 08/24/20 14:40 14:40 14:48 WBC RBC Hgb Hct MCV MCH MCHC RDW Plt Count Neut % (Auto) Lymph % (Auto) [place] % (Auto) Eos % (Auto) Baso % (Auto) Neut # (Auto) Lymph # (Auto) [place] # (Auto) Eos # (Auto) Baso # (Auto) D-Dimer ABG pH 7.52 H ABG pCO2 30.1 L ABG pO2 57 L ABG HCO3 25 ABG Total CO2 26 ABG O2 Saturation 93 L ABG Base Excess 2.0 FiO2 44 Sodium 136 L Potassium 3.2 L Chloride 101 Carbon Dioxide 28 BUN 14 Creatinine 0.75 Estimated GFR > 60.0 BUN/Creatinine Ratio 18.7 Glucose 156 H Lactate 2.0 Calcium 8.5 Magnesium Ferritin 1620 H Total Bilirubin 0.9 AST 96 H ALT 58 H Alkaline Phosphatase 111 Lactate Dehydrogenase 1902 H Total Creatine Kinase 704 H CK-MB (CK-2) 0.99 CK-MB (CK-2) Rel Index 0.1 L Troponin I < 0.012 C-Reactive Protein 17.9 H NT-Pro-B Natriuret Pep 207 H Total Protein 6.9 Albumin 3.7 Globulin 3.2 Albumin/Globulin Ratio 1.2 Procalcitonin Nasal Screen MRSA (PCR) Chlamy pneumoniae PCR Adenovirus (PCR) B. pertussis DNA (PCR) B.parapertussis DNA PCR Coronavirus OC43 (PCR) Coronavirus HKU1 (PCR) Coronavirus 229E (PCR) SARS-CoV-2 (PCR) Coronavirus NL63 (PCR) Human Metapneumovir PCR Influenza Type A (PCR) Influenza Type B (PCR) M. pneumoniae (PCR) Parainfluenza 1 (PCR) Parainfluenza 2 (PCR) Parainfluenza 3 (PCR) Parainfluenza 4 (PCR) RSV (PCR) Entero/Rhino (PCR) 08/24/20 08/24/20 08/24/20 16:55 18:35 21:35 WBC RBC Hgb Hct MCV MCH MCHC RDW Plt Count Neut % (Auto) Lymph % (Auto) [place] % (Auto) Eos % (Auto) Baso % (Auto) Neut # (Auto) Lymph # (Auto) [place] # (Auto) Eos # (Auto) Baso # (Auto) D-Dimer ABG pH ABG pCO2 ABG pO2 ABG HCO3 ABG Total CO2 ABG O2 Saturation ABG Base Excess FiO2 Sodium Potassium Chloride Carbon Dioxide BUN Creatinine Estimated GFR BUN/Creatinine Ratio Glucose Lactate 1.3 Calcium Magnesium Ferritin Total Bilirubin AST ALT Alkaline Phosphatase Lactate Dehydrogenase Total Creatine Kinase CK-MB (CK-2) CK-MB (CK-2) Rel Index Troponin I C-Reactive Protein NT-Pro-B Natriuret Pep Total Protein Albumin Globulin Albumin/Globulin Ratio Procalcitonin Nasal Screen MRSA (PCR) Negative for mrsa Chlamy pneumoniae PCR Not detected Adenovirus (PCR) Not detected B. pertussis DNA (PCR) Not detected B.parapertussis DNA PCR Not detected Coronavirus OC43 (PCR) Not detected Coronavirus HKU1 (PCR) Not detected Coronavirus 229E (PCR) Not detected SARS-CoV-2 (PCR) Detected H Coronavirus NL63 (PCR) Not detected Human Metapneumovir PCR Not detected Influenza Type A (PCR) Not detected Influenza Type B (PCR) Not detected M. pneumoniae (PCR) Not detected Parainfluenza 1 (PCR) Not detected Parainfluenza 2 (PCR) Not detected Parainfluenza 3 (PCR) Not detected Parainfluenza 4 (PCR) Not detected RSV (PCR) Not detected Entero/Rhino (PCR) Not detected 08/25/20 08/25/20 08/25/20 04:10 04:10 04:10 WBC RBC Hgb Hct MCV MCH MCHC RDW Plt Count Neut % (Auto) Lymph % (Auto) [place] % (Auto) Eos % (Auto) Baso % (Auto) Neut # (Auto) Lymph # (Auto) [place] # (Auto) Eos # (Auto) Baso # (Auto) D-Dimer 627 H ABG pH ABG pCO2 ABG pO2 ABG HCO3 ABG Total CO2 ABG O2 Saturation ABG Base Excess FiO2 Sodium 140 Potassium 4.2 Chloride 105 Carbon Dioxide 30 BUN 19 Creatinine 0.80 Estimated GFR > 60.0 BUN/Creatinine Ratio 23.8 H Glucose 151 H Lactate Calcium 8.3 L Magnesium 2.3 Ferritin 1580 H Total Bilirubin 0.5 AST 73 H ALT 54 H Alkaline Phosphatase 91 Lactate Dehydrogenase 1596 H Total Creatine Kinase CK-MB (CK-2) CK-MB (CK-2) Rel Index Troponin I C-Reactive Protein 17.7 H NT-Pro-B Natriuret Pep Total Protein 6.1 L Albumin 3.2 L Globulin 2.9 Albumin/Globulin Ratio 1.1 Procalcitonin Nasal Screen MRSA (PCR) Chlamy pneumoniae PCR Adenovirus (PCR) B. pertussis DNA (PCR) B.parapertussis DNA PCR Coronavirus OC43 (PCR) Coronavirus HKU1 (PCR) Coronavirus 229E (PCR) SARS-CoV-2 (PCR) Coronavirus NL63 (PCR) Human Metapneumovir PCR Influenza Type A (PCR) Influenza Type B (PCR) M. pneumoniae (PCR) Parainfluenza 1 (PCR) Parainfluenza 2 (PCR) Parainfluenza 3 (PCR) Parainfluenza 4 (PCR) RSV (PCR) Entero/Rhino (PCR) [facility] Medical History Hypertension Surgical History H/O oral surgery Family History Mother Hypertension Social History household members: spouse Smoking Status: Former smoker Assessment & Plan Assessment & Plan narrative: José Miguel Cabrera is a 65-year-old male with a past medical history of hypertension who presented to the emergency room with shortness of breath. He is admitted with acute hypoxic respiratory failure most probably from COVID-19 pneumonia. 1. Acute hypoxic respiratory failure, present on admission -patient's initial symptoms started over 2 weeks ago with recent worsening of shortness of breath. Officially diagnosed 5-6 days previously in [place]. In the ER patient 82% on room air, requiring heated hi-flow oxygen on admission. Remains on heated hi-flow today, oxygenation needs very slightly increased today. - Repeat respiratory panel to assess for other viral etiologies was negative other than for known COVID-19 infection. - S1Q3T3 pattern on EKG with borderline d-dimer on admission. Given findings a nd relatively late onset of acute dyspnea CT angiogram was ordered which was negative for PE but does show severe COVID disease. - patient mildly hypertensive, and reports some orthopnea with trace LE edema on exam actually slightly worsened today. ProBNP very minimally elevated. Will give 40 mg of IV lasix today in attempt to diurese slightly. Unable to obtain TTE given COVID + status. - RT evaluation and treatment. - continue remdesevir and dexamethasone for severe COVID 19 infection. - continue to follow inflammatory markers with tomorrow's labs. 2. COVID 19 pneumonia - management as noted above. 3. HTN, chronic - will hold home losartan-hctz for now. Will start with lasix as noted above and re-assess to see if symptoms improve. Will continue to monitor BP as well given severity of inflammatory markers and degree of pulmonary involvement. DVT: Lovenox daily Dispo: admitted under inpatient status. Disposition is to likely home once acute respiratory failure improves, timing unclear. Code: Full, surrogate decision maker he states is his . COVID-19 COVID-19 status: Positive
[2020-08-25] MEDS: FUROSEMIDE 40 MG/4 ML VIAL IV (14:43)
[2020-08-25] MEDS: REMDESIVIR 100 MG in SODIUM CHLORIDE 0.9% 230 ML 250 ML IV (15:55)
[2020-08-25] MEDS: LOSARTAN 25 MG TABLET PO (18:17)
[2020-08-25] MEDS: OXYCODONE IR 5 MG TABLET PO (18:29)
--- NOTE | 2020-08-25 19:28 | PC.NURSE ---
Addendum entered by Tamar Walden R.N. 08/25/20 22:44: Carbone placed as order, clear straw colored urine draining, pt tolerated well. Pt continues to desat. lowest SpO2 77%, slow to recover. 100% O2 flush administered to assist in SpO2 recovery. Provider updated on status, RT at bedside monitoring patient O2 needs and status. Will continue to monitor Addendum entered by Tamar Walden R.N. 08/25/20 21:29: Ashley ZENG updated on pt status, current VIRGEN score 3.45, new orders for ABG, Carbone and to continue to monitor patient closely Addendum entered by Tamar Walden R.N. 08/25/20 19:47: HHFNC 55L/90% FiO2 due to desaturation and not recovering, currently 86% SpO2, goal is 90% and above. Will continue to monitor Original Note: Evening shift note: Pt is A/O x4, non productive cough and SOB with exertion, desaturates to 84% on HHRNC 55L/85% FiO2 to maintain O2 above 90% while proning, recovers with coaching, RR 20-30s, intermittent dry cough, generalized pain, SR/ST, HTN, afebrile. Dr Quiroz restarted pt home [facility] thumb region. Pt is compliant with proning and side-lying when not eating meals. , Amie, updated via phone, also spoke with Dr Quiroz for update. Call light within reach, able to make needs known, will continue to monitor.
--- NOTE | 2020-08-25 21:40 | PM.EVENT ---
Event Note Date Patient Seen: 08/25/20 Time Patient Seen: 21:00 Event Note: Notified by RT that we were being close to needing to intubate this patient stating he had increase O2 demand. Requested an ABG. He is at 55/90% FIO2. At time of initial assessment, his recorded RR was 28, when RT was in the room and he was speaking, his rate went up to 33-35, saturations in the high 80s, low 90s. He had been sleeping and was awoken, did not appear to be in respiratory distress. My calculated Roxx score was 3.43, low intermediate probability of needing intubation. RT attempted to draw his ABG twice, then was called down to the ED. They stated that their Roxx score was higher and that he was at higher risk of requiring intubation and transfer. I informed that he did not appear to need to be intubated right now and that we would be monitoring him closely tonight. I also informed them if he needed to be intubated but remained stable, we would not likely be transferring the patient.
[2020-08-25] MEDS: MELATONIN 3 MG TABLET 6 MG PO (21:45)
[2020-08-25 22:36] LABS: HCO3 VBG 30 mmol/L (23-28); Oxygen Saturation VBG 40 % (70-75); PCO2 VBG 42.8 mmHg (45-50); PO2 VBG 22 mmHg (35-45); Total CO2 VBG 31 mmol/L (24-29)
[2020-08-25 22:37] LABS: pH VBG 7.45 (7.33-7.43)
--- NOTE | 2020-08-25 22:46 | RT ---
Addendum entered by Mer Vazquez, RT 08/25/20 22:51: Pt's SpO2 desat to 77% and slow to recover. 100% flush via HHFNC. Pt is now proning again. Will continue to monitor. Original Note: RAIMUNDO Boyle and I expressed concerns about pt's O2 requirements increasing. I increased FiO2 from 85% to 90% at 195 due to pt's desat to 87%-88%. Pt's SpO2 increased to 93%. Performed ABG on pt, but VBG collected instead. Pt's RR 30-34, SpO2 is variable from 87%-90%. Pt's SpO2 takes a while to increase to 90% or above. Pt has proned for the majority of the day and has been educated about breathing techniques.
--- NOTE | 2020-08-25 23:06 | PM.EVENT ---
Event Note Date Patient Seen: 08/25/20 Time Patient Seen: 23:06 Event Note: Called in over concern for worsening oxygen requirements. His FiO2 has been turned up to 90% FiO2, he desaturates with minimal exertion but this is not unexpected with his severity of COVID pneumonia. During my evaluation, the patient was resting, proned, RR was 18. Saturation was 92%. Patient feels comfortable and without shortness of breath. VIRGEN score of 5.38 indication of low risk of intubation currently. Will continue to monitor. With COVID, attempt as much as possible to avoid extubation. Will order ABG for the morning. Carbone catheter was placed to limit movement / transfers. Patient should continue proning for the rest of the night.
[2020-08-26] VITALS (22 sets, daily range): BP systolic 122–165; BP diastolic 67–96; PULSE 45–93; RESP 16–32; TEMP 36.6–38; O2SAT 85–97
--- NOTE | 2020-08-26 00:59 | RT ---
Addendum entered by Mer Vazquez, RT 08/26/20 01:03: Will continue to monitor pt. Original Note: Went to see pt at 0036. Pt's WOB is slightly increased due to new grunting noise while pt is sleeping. Pt's TED is now 4.10 per RT flowsheet with TED algorithm and checked again through MD Calc. Pt's RR 26, SpO2 96%, HR 77, and with HHFNC settings still on 55 LPM and 90% FiO2. RN aware.
--- NOTE | 2020-08-26 02:12 | RT ---
Checked pt at 0209. Pt's SpO2 94%, RR 26, HHFNC settings still 55 LPM with 90% FiO2. TED is now 4.02.
--- NOTE | 2020-08-26 04:20 | RT ---
Checked pt at 0406. TED 4.35, SpO2 94%, RR 24, HHFNC 55 LPM, 90% FiO2. Will continue to monitor pt.
[2020-08-26 05:32] LABS: Alanine Aminotransferase 59 IU/L (<50); Albumin 3.3 g/dL (3.5-5.0); Albumin Globulin Ratio 1.1 (1.0-2.8); Alkaline Phosphatase 87 U/L (38-126); Aspartate Aminotransferase 58 IU/L (17-59); Bilirubin Total 0.5 mg/dL (0.2-1.3); Blood Urea Nitrogen 32 mg/dL (9-20); Calcium 8.4 mg/dL (8.4-10.2); Carbon Dioxide 28 mmol/L (22-32); Chloride 104 mmol/L (98-107); Estimated Glomerular Filt Rate > 60.0 mL/min (>60); Glucose 148 mg/dL (80-110); HEMOLYSIS 29 (0-50); Magnesium 2.3 mg/dL (1.6-2.3); Potassium 3.7 mmol/L (3.4-5.1); Sodium 138 mmol/L (137-145); Total Protein 6.3 g/dL (6.3-8.2)
--- NOTE | 2020-08-26 06:17 | RT ---
Checked on pt at 0609. Pt is lying on right side. SpO2 97%, RR 26, HHFNC 55 LPM and 90% FiO2. Will continue to monitor.
--- NOTE | 2020-08-26 07:22 | PC.NURSE ---
Tufting Machine Fixer Note-Patient slept prone from 2330 to 0430, then turned to right side. SpO2 88-98%, will desat to 84% during activity, recovers slowly, RR 20s-30s, lung sounds remain dim, but are clearing and can now auscultate some air movement when patient is proned. Tylenol given for fever 100.4 and back pain.
[2020-08-26 07:48] LABS: Fractionated Inspired Oxygen 0.9; HCO3 ABG 28 mmol/L (22-26); Oxygen Saturation ABG 96 % (95-100); PCO2 ABG 36.1 mmHg (35-45); PO2 ABG 76 mmHg (80-100); TCO2 ABG 29 mmol/L (21-31); pH ABG 7.49 (7.35-7.45)
[2020-08-26] MEDS: DEXAMETHASONE 10 MG/ML VIAL 6 MG IV (08:25)
[2020-08-26] MEDS: ENOXAPARIN 40 MG/0.4 ML SYRINGE SUBCUT (08:26)
[2020-08-26] MEDS: SODIUM CHLORIDE 0.9% FLUSH 10 ML IV ×2 (08:27→21:11)
[2020-08-26] MEDS: LOSARTAN 25 MG TABLET PO (08:32)
--- NOTE | 2020-08-26 09:23 | DI.US.S_ITS ---
PROCEDURE: US PERIPH VENOUS UP EXTREM RT INDICATIONS: EDEMA TECHNIQUE: Real-time imaging, as well as color and pulse Doppler interrogation, was performed of the right upper extremity deep veins from the inferior neck to the antecubital fossa. COMPARISON: [facility], CT, CT ANGIO CHEST PE PROTOCOL, 08/24/2020, 18:37. FINDINGS: The internal jugular vein, visualized portions of the subclavian vein, axillary, and brachial veins are free of intraluminal thrombus. Where physically possible, the veins are normally compressible. Color and pulse Doppler demonstrate normal intraluminal flow, with expected phasicity and pulsatility. Additional scanning of the cephalic and basilic veins of the superficial system demonstrate normal compressibility, without thrombus. IMPRESSION: Negative for deep venous thrombosis. Dictated by: Horace Levy M.D. on 08/26/2020 at 10:57 Approved by: Horace Levy M.D. on 08/26/2020 at 10:59
--- NOTE | 2020-08-26 09:32 | PC.NURSE ---
Addendum entered by Fadia Mc R.N. 08/26/20 11:49: ultrasound complete and no evidence of dvt to right upper extremity Original Note: PT ALERT AND ORIENTED AND COOPERATIVE WITH PLAN OF CARE INCLUDING PRONING MUCH ABLE- LUNGS COARSE BUT AIR MOVEMENT NOTED HHFNC REMAINS AT 55L/90% FIO2 WITH SPO2 96% - PT DID C/O RIGHT INNER ARM SWELLING AND PAIN- ASSESSED BY THIS RN AND DR MORRISSEY AND ULTRASOUND ORDERED TO RULE OUT DVT- OF NOTE, PT STATES THAT THERE WAS AN IV PLACED THERE AND REMOVED YESTERDAY . DECLINES ANY PAIN RX AT THIS TIME- DANGLING ON EOB FOR AM MEAL, HENRY PATENT
--- NOTE | 2020-08-26 10:33 | CM.DANOTE ---
DCP: Case received, EMR reviewed and called patient from his room, since he is COVID positive. Introduced self and role over the phone. Was able to obtain information from patient regarding his baseline activity level prior to hospitalization, as well as his current living situation. DCP assessment completed with information currently available. Patient is a 65 year old male who admitted on the afternoon of 08/24 to the care of the hospitalist team. PCP: Dr. Tai Bishop, at [facility]. Payer: no insurance. Patient came to the hospital via private vehicle secondary to having increased shortness of breath. Patient and his spouse, Amie had just driven up from [place]. They reside there for 5 months, and are up here for the summer. They reside in an in [place]. Patient holds diagnosis of COVID Pneumonia. Patient indicated, he had had some nasal congestion when he was in [place], that he thought was allergy related, had no idea it was COVID. Patient is improving. He is still on oxygen. He is independent at his baseline as far as activity level. Confirmed with patient that he does have a provider at [facility], but he has no insurance. Patient stated, he was waiting to turn 66 to qualify for Medicare. According to financial notes from counselors, patient makes too much with social security to qualify for Medicaid. Patient's was given information to print out a financial assistance form. Patient stated, My handles those matters, and is working on the application. P: DCP to continue to follow for any needs. Patient should be able to go home when he is medically stable. Eryn Chairez RN/Corporate Travel Counselor
--- NOTE | 2020-08-26 11:56 | P.PN_ITS ---
Subjective Subjective Date Patient Seen: 08/26/20 Interval history: Patient is 65-year-old male with history of obesity and hypertension admitted for COVID-19 pneumonia. He is presently on heated high-flow at 55 liters/minute and 90% FiO2. He is able to self prone majority of the time. He states he is not feeling short of breath. He is complaining this morning of pain and redness in the right elbow antecubital area near prior IV placement. Exam Vital Signs (past 8 hours): - 08/26/20 04:00 08/26/20 04:06 08/26/20 04:57 Temperature 100.4 F H Pulse Rate 78 86 Respiratory Rate 23 24 Blood Pressure 165/88 H Pulse Oximetry 92 94 08/26/20 06:09 08/26/20 07:52 08/26/20 08:00 Temperature 98.1 F Pulse Rate 73 72 86 Respiratory Rate 26 H 18 16 Blood Pressure 165/88 H 165/88 H 141/67 H Pulse Oximetry 97 95 97 08/26/20 09:10 Temperature Pulse Rate 74 Respiratory Rate 18 Blood Pressure Pulse Oximetry 93 Fraction of Inspired Oxygen 0.94 Oxygen Delivery Method Heated High Flow Oxygen Flow Rate 55 Narrative Exam Narrative: General: Alert and cooperative male in no acute distress Lungs: Not using accessory muscles, able to speak full sentences, bilateral coarse breath sounds Heart: Regular rhythm Abdomen: Soft Extremities: Trace pretibial edema. There is mild redness and tenderness of the right antecubital area, no significant edema, no palpable cord Objective Labs Result Diagrams: 08/24/20 14:40 08/26/20 04:45 Labs: Laboratory Results - last 24 hr 08/25/20 08/26/20 08/26/20 22:20 04:45 07:27 ABG pH 7.49 H ABG pCO2 36.1 ABG pO2 76 L ABG HCO3 28 H ABG Total CO2 29 ABG O2 Saturation 96 ABG Base Excess 4.0 H VBG pH 7.45 H VBG pCO2 42.8 L VBG pO2 22 L VBG HCO3 30 H VBG Total CO2 31 H VBG O2 Saturation 40 L VBG Base Excess 6.0 H FiO2 0.9 Sodium 138 Potassium 3.7 Chloride 104 Carbon Dioxide 28 BUN 32 H Creatinine 0.78 Estimated GFR > 60.0 BUN/Creatinine Ratio 41.0 H Glucose 148 H Calcium 8.4 Magnesium 2.3 Total Bilirubin 0.5 AST 58 ALT 59 H Alkaline Phosphatase 87 Total Protein 6.3 Albumin 3.3 L Globulin 3.0 Albumin/Globulin Ratio 1.1 [facility] Medical History Hypertension Surgical History H/O oral surgery Family History Mother Hypertension Social History household members: spouse Smoking Status: Former smoker Assessment & Plan Assessment & Plan narrative: Patient is 65-year-old male with history of obesity and hypertension admitted with acute respiratory failure due to COVID-19 pneumonia. 1. Acute hypoxic respiratory failure, present on admission -patient's initial symptoms started over 2 weeks ago with recent worsening of shortness of breath. Officially diagnosed 5-6 days previously in [place]. In the ER patient 82% on room air, requiring heated hi-flow oxygen on admission. Remains on heated hi-flow today with significant but stable O2 requirements. - Repeat respiratory panel to assess for other viral etiologies was negative other than for known COVID-19 infection. - S1Q3T3 pattern on EKG with borderline d-dimer on admission. Given findings and relatively late onset of acute dyspnea CT angiogram was ordered which was negative for PE but does show severe COVID disease. - patient was mildly hypertensive, and reports some orthopnea with trace LE edema on exam actually slightly worsened today. ProBNP very minimally elevated. Received Lasix 40 mg IV on 08/25 with approximately 800 cc diuresis. Unable to obtain TTE given COVID + status. -discontinued additional IV Lasix as patient's BUN is rising. Enlarged cardiac silhouette noted on x-ray but no cardiomegaly noted on CT. - RT evaluation and treatment. - continue remdesevir and dexamethasone for severe COVID 19 infection. -on current exam his respiratory rate is in mid 20s and he is not labored at rest 2. COVID 19 pneumonia - management as noted above. 3. HTN, chronic -patient on losartan HCT at home -restarted losartan 25 mg q.d. 4. Right antecubital fossa erythema/pain -this was noted on 04/14, likely due to IV infiltration, IV line was removed on 08/25 -upper extremity venous duplex ultrasound order to rule out DVT DVT: Lovenox daily Dispo: admitted under inpatient status. Disposition is to likely home once acute respiratory failure improves, timing unclear. Code: Full, surrogate decision maker he states is his .
[2020-08-26] MEDS: REMDESIVIR 100 MG in SODIUM CHLORIDE 0.9% 230 ML 250 ML IV (15:31)
[2020-08-26] MEDS: CODEINE/GUAIFENESIN LIQUID 5ML UDC 10 ML PO ×2 (16:03→21:33)
--- NOTE | 2020-08-26 16:05 | RT ---
Able to wean patient from 55 liters and 90% on HHFNC, to 55 liters amd 75%. Talked about recent loss of brother in law to COVID and patient's anxiety about his and his 's condition. Patient reassured. Ericka Perez, [employer]
--- NOTE | 2020-08-26 19:12 | PC.NURSE ---
Evening shift note: Pt resting in bed with eyes closed, proned with head facing left, currently on HHF 55L/75% SpO2 95% RR 30, Lungs are coarse and diminished, air movement noted, non-productive cough orders obtained for cough medication and administered. Carbone catheter patent, draining clear straw colored urine. Patient states he wants to sleep, dinner placed at bedside, PIV SL, bed low and locked, call light within reach, will continue to monitor.
[2020-08-26] MEDS: MELATONIN 3 MG TABLET 6 MG PO (21:11)
[2020-08-26] MEDS: DOCUSATE 250 MG CAPSULE PO (21:11)
[2020-08-27] VITALS (17 sets, daily range): BP systolic 151–170; BP diastolic 86–100; PULSE 75–101; RESP 13–25; TEMP 36.9–37.1; O2SAT 89–94
[2020-08-27 05:31] LABS: Blood Urea Nitrogen 34 mg/dL (9-20); Calcium 8.3 mg/dL (8.4-10.2); Carbon Dioxide 32 mmol/L (22-32); Chloride 102 mmol/L (98-107); Estimated Glomerular Filt Rate > 60.0 mL/min (>60); Glucose 147 mg/dL (80-110); HEMOLYSIS < 15 (0-50); Magnesium 2.5 mg/dL (1.6-2.3); Potassium 4.3 mmol/L (3.4-5.1); Sodium 138 mmol/L (137-145)
[2020-08-27] MEDS: CODEINE/GUAIFENESIN LIQUID 5ML UDC 10 ML PO ×3 (06:10→20:29)
--- NOTE | 2020-08-27 06:42 | PC.NURSE ---
Workers Compensation Paralegal Note-Patient slept prone from midnight until 0500, SpO2 89-95% on 55L/.75 FIO2, RR 20s, lung sounds clear posteriorly while lying prone. At 0500, patient was up high-fowlers, SpO2 sustaining around 90%, codeine elixer given for persistent cough. Sats increased to >92% when he turned onto Lt side. 8 beat run VT at 0530, asymptomatic.
[2020-08-27] MEDS: ENOXAPARIN 40 MG/0.4 ML SYRINGE SUBCUT (09:17)
[2020-08-27] MEDS: LOSARTAN 25 MG TABLET PO ×2 (09:18→16:31)
[2020-08-27] MEDS: DOCUSATE 250 MG CAPSULE PO ×2 (09:18→20:02)
[2020-08-27] MEDS: DEXAMETHASONE 10 MG/ML VIAL 6 MG IV (09:18)
[2020-08-27] MEDS: polyethylene glycoL 3350 17 GM POWD.PACK PO (09:18)
[2020-08-27] MEDS: SODIUM CHLORIDE 0.9% FLUSH 10 ML IV ×2 (09:18→20:29)
--- NOTE | 2020-08-27 15:49 | P.PN_ITS ---
Subjective Subjective Date Patient Seen: 08/27/20 Time Patient Seen: 15:49 Interval history: This is a 65-year-old gentleman with a past medical history of hypertension who is admitted for COVID pneumonia and acute hypoxic respiratory failure. Patient was relatively stable overnight, he was able to be decreased somewhat on his oxygen requirements today. During my exam I was able to turn him down to 55L at FiO2 55% and he was saturating in the low 90s generally. He denies any chest pain, or palpitations today. Feels overall improved. Struggling to have a bowel movement and has been unsuccessful thus far. He desaturates quite easily with minimal movement. Exam Vital Signs (past 8 hours): - 08/27/20 08:00 08/27/20 08:12 08/27/20 09:18 Temperature 98.6 F Pulse Rate 86 75 Respiratory Rate 25 H 22 Blood Pressure 160/86 H 160/86 H 160/86 H Pulse Oximetry 93 90 L 08/27/20 11:02 08/27/20 13:32 08/27/20 14:51 Temperature 98.6 F Pulse Rate 77 87 86 Respiratory Rate 20 24 24 Blood Pressure 170/95 H Pulse Oximetry 90 L 94 93 Fraction of Inspired Oxygen 0.75 Oxygen Delivery Method Heated High Flow Oxygen Flow Rate 55 Narrative Exam Narrative: GENERAL APPEARANCE: Well developed, well nourished, in no acute distress on heated high-flow via nasal cannula. SKIN: Inspection of the skin reveals no rashes, ulcerations or petechiae. HEENT: Normocephalic atraumatic, extraocular muscles are intact, oropharynx is clear and mucous membranes are moist, neck is supple without adenopathy NECK: Supple and symmetric. There was no thyroid enlargement, and no tenderness, or masses were felt. CHEST: Normal AP diameter and normal contour without any kyphoscoliosis. LUNGS: Diminished breath sounds bilaterally at the lung bases with mild bibas ilar crackles although limited by available disposable stethascope. CARDIOVASCULAR: There was a regular rate and rhythm without any murmurs, gallops, rubs. Peripheral pulses were 2+ and symmetric. ABDOMEN: Soft and nontender with normal bowel sounds. No ascites was noted. MUSCULOSKELETAL: There was no tenderness or effusions noted. Muscle strength and tone were normal. EXTREMITIES: No cyanosis, clubbing. no edema. NEUROLOGIC: Alert and oriented x 3. Normal affect. Strength is +5/5 in the Upper Extremities and Lower Extremities Bilaterally. Sensation to touch was normal. Objective Labs Result Diagrams: 08/24/20 14:40 08/27/20 05:00 Labs: Laboratory Results - last 24 hr 08/27/20 05:00 Sodium 138 Potassium 4.3 Chloride 102 Carbon Dioxide 32 BUN 34 H Creatinine 0.85 Estimated GFR > 60.0 BUN/Creatinine Ratio 40.0 H Glucose 147 H Calcium 8.3 L Magnesium 2.5 H PFSH Medical History Hypertension Surgical History H/O oral surgery Family History Mother Hypertension Social History household members: spouse Smoking Status: Former smoker Assessment & Plan Assessment & Plan narrative: Patient is 65-year-old male with history of obesity and hypertension admitted with acute respiratory failure due to COVID-19 deestephanie allen. 1. Acute hypoxic respiratory failure, present on admission -patient's initial symptoms started over 2 weeks ago with recent worsening of shortness of breath. Officially diagnosed 5-6 days prior to admission in [place]. In the ER patient 82% on room air, requiring heated hi-flow oxygen on admission. Remains on heated hi-flow today with significant but stable to slightly improved O2 requirements. - Repeat respiratory panel to assess for other viral etiologies was negative other than for known COVID-19 infection. - S1Q3T3 pattern on EKG with borderline d-dimer on admission. Given findings and relatively late onset of acute dyspnea CT angiogram was ordered which was negative for PE but does show severe COVID disease. - patient was mildly hypertensive, and reports some orthopnea with trace LE edema on exam actually slightly worsened today. ProBNP very minimally elevated. Received Lasix 40 mg IV on 08/25 with approximately 800 cc diuresis. Unable to obtain TTE given COVID + status. -discontinued additional IV Lasix as patient's BUN is rising. Enlarged cardiac silhouette noted on x-ray but no cardiomegaly noted on CT. - RT evaluation and treatment. - continue remdesevir and dexamethasone for severe COVID 19 infection. -on current exam his respiratory rate is in mid 20s and he is not labored at rest 2. COVID 19 pneumonia - management as noted above. 3. HTN, chronic -patient on losartan HCT at home -restarted losartan 25 mg q.d., will increase today to 50 mg daily. continue to hold thiazide, if hypertensive still tomorrow will resume. 4. Right antecubital fossa erythema/pain, improved. -this was noted on 08/26, likely due to IV infiltration, IV line was removed on 08/25 -upper extremity venous duplex ultrasound order to rule out DVT was negative. DVT: Lovenox daily Dispo: admitted under inpatient status. Disposition is to likely home once acute respiratory failure improves, timing unclear. Code: Full, surrogate decision maker he states is his . COVID-19 COVID-19 status: Positive
[2020-08-27] MEDS: OXYCODONE IR 5 MG TABLET PO (16:32)
[2020-08-27] MEDS: REMDESIVIR 100 MG in SODIUM CHLORIDE 0.9% 230 ML 250 ML IV (16:32)
[2020-08-27] MEDS: BENZONATATE 100 MG CAPSULE PO (18:31)
[2020-08-27] MEDS: MELATONIN 3 MG TABLET 6 MG PO (20:02)
--- NOTE | 2020-08-27 22:51 | PC.NURSE ---
Addendum entered by Tamar Walden R.N. 08/27/20 22:56: Pt desaturating RT changed setting on HHF 55L/65%, SpO2 improved to 92% Original Note: Evening shift note: Pt resting in bed in high fowlers position, proned through the night for approximately 5 hrs but not much proning during the day, currently on HHF 55L/55% FiO2, SpO2 91% RR 20-30, Lungs are coarse and diminished, air movement noted, cough has become more productive/loose, administered codiene cough medication, but pt requires additional cough help, orders obtained for tesselon pearls and administered. Carbone catheter patent, draining clear straw colored urine. PIV SL, bed low and locked, call light within reach, will continue to monitor.
[2020-08-28] VITALS (18 sets, daily range): BP systolic 137–170; BP diastolic 77–107; PULSE 70–98; RESP 19–28; TEMP 36.3–37.1; O2SAT 89–97
[2020-08-28] MEDS: ENOXAPARIN 40 MG/0.4 ML SYRINGE SUBCUT (08:29)
[2020-08-28] MEDS: DEXAMETHASONE 10 MG/ML VIAL 6 MG IV (08:29)
[2020-08-28] MEDS: LOSARTAN 50 MG TABLET PO (08:30)
[2020-08-28] MEDS: BENZONATATE 100 MG CAPSULE PO (08:30)
[2020-08-28] MEDS: SODIUM CHLORIDE 0.9% FLUSH 10 ML IV ×2 (08:32→17:22)
[2020-08-28] MEDS: OXYCODONE IR 5 MG TABLET PO (08:35)
--- NOTE | 2020-08-28 10:06 | PC.NURSE ---
Addendum entered by Fadia Mc R.N. 08/28/20 13:46: DR GARCIA DECREASED FIO2 TO 50 % AND LEFT AT 55L WITH MAINTAINING SPO2 OF 93-95%- MEDICATED WITH COUGH RX- HENRY PATENT Original Note: PT ASSISTED TO BSC FOR BM AND TEHN TO SHOWER - PLACED ON 15L HFNC FOR BATHING AND REPLACED ON HHFNC AT PREVIOUS SETTINGS ( 55L/70%) UPON EXIT- HE IS SITTING ON EDGE OF BED AND RECOVERED FULLY TO 93% WITHIN 2-3 MINUTES AND EVEN INCREASED SPO2 TO 96% UPON FURTHER REST.
--- NOTE | 2020-08-28 12:30 | RT ---
gogo done x10, pt states he practices with device as much as possible. Good effort noted
[2020-08-28] MEDS: CODEINE/GUAIFENESIN LIQUID 5ML UDC 10 ML PO (13:02)
--- NOTE | 2020-08-28 13:58 | PM.PN.1 ---
Subjective Subjective Date Patient Seen: 08/28/20 Time Patient Seen: 13:30 Interval history: This is a 65-year-old gentleman with a past medical history of hypertension who is admitted for COVID pneumonia and acute hypoxic respiratory failure. Patient was relatively stable overnight, he was able to be decreased somewhat on his oxygen requirements today. During my exam I was able to turn him down to 55L at FiO2 50% and he was saturating in the mid90s generally. He denies any chest pain, or palpitations today. Feels overall improved. was able to have a small, hard bowel movement today. Was able to shower. Overall improving. Exam Vital Signs (past 8 hours): - 08/28/20 06:22 08/28/20 09:56 08/28/20 12:05 Temperature 98.7 F Pulse Rate 82 98 H 83 Respiratory Rate 28 H 19 26 H Blood Pressure 137/93 H Pulse Oximetry 89 L 96 94 08/28/20 12:28 08/28/20 13:02 08/28/20 13:45 Temperature Pulse Rate 82 Respiratory Rate 19 Blood Pressure 137/77 Pulse Oximetry 94 97 93 Fraction of Inspired Oxygen 50 Oxygen Delivery Method High Flow Nasal Cannula Oxygen Flow Rate 55 Narrative Exam Narrative: ENERAL APPEARANCE: Well developed, well nourished, in no acute distress on heated high-flow via nasal cannula. SKIN: Inspection of the skin reveals no rashes, ulcerations or petechiae. HEENT: Normocephalic atraumatic, extraocular muscles are intact, oropharynx is clear and mucous membranes are moist, neck is supple without adenopathy NECK: Supple and symmetric. There was no thyroid enlargement, and no tenderness, or masses were felt. CHEST: Normal AP diameter and normal contour without any kyphoscoliosis. LUNGS: Diminished breath sounds bilaterally at the lung bases with mild bibasilar crackles although limited by available disposable stethascope. CARDIOVASCULAR: There was a regular rate and rhythm without any murmurs, gallops, rubs. Peripheral pulses were 2+ and symmetric. ABDOMEN: Soft and nontender with normal bowel sounds. No ascites was noted. MUSCULOSKELETAL: There was no tenderness or effusions noted. Muscle strength and tone were normal. EXTREMITIES: No cyanosis, clubbing. no edema. NEUROLOGIC: Alert and oriented x 3. Normal affect. Strength is +5/5 in the Upper Extremities and Lower Extremities Bilaterally. Sensation to touch was normal. Objective Labs Result Diagrams: 08/24/20 14:40 08/27/20 05:00 [facility] Medical History Hypertension Surgical History H/O oral surgery Family History Mother Hypertension Social History household members: spouse Smoking Status: Former smoker Assessment & Plan Assessment & Plan narrative: Patient is 65-year-old male with history of obesity and hypertension admitted with acute respiratory failure due to COVID-19 pneumonia. 1. Acute hypoxic respiratory failure, present on admission -patient's initial symptoms started over 2 weeks prior to admission with more recent worsening of shortness of breath. Officially diagnosed 5-6 days prior to admission in [place]. In the ER patient 82% on room air, requiring heated hi-flow oxygen on admission. Remains on heated hi-flow today with significant but stable to slightly improved O2 requirements. - Repeat respiratory panel to assess for other viral etiologies was negative other than for known COVID-19 infection. - S1Q3T3 pattern on EKG with borderline d-dimer on admission. Given findings and relatively late onset of acute dyspnea CT angiogram was ordered which was negative for PE but does show severe COVID disease. - patient was mildly hypertensive, and reports some orthopnea with trace LE edema on exam actually slightly worsened today. ProBNP very minimally elevated. Received Lasix 40 mg IV on 08/25 with approximately 800 cc diuresis. Unable to obtain TTE given COVID + status. -discontinued additional IV Lasix as patient's BUN is rising. Enlarged cardiac silhouette noted on x-ray but no cardiomegaly noted on CT. - RT evaluation and treatment. - continue remdesevir and dexamethasone for severe COVID 19 infection. 2. COVID 19 pneumonia - management as noted above. 3. HTN, chronic -patient on losartan HCTZ at home (50/12.5) -restarted losartan 25 mg q.d. initially, increased to 50 mg daily 08/27 with improvement in BP today. continue to hold thiazide at this time. 4. Right antecubital fossa erythema/pain, improved. -this was noted on 08/26, likely due to IV infiltration, IV line was removed on 08/25 -upper extremity venous duplex ultrasound order to rule out DVT was negative. DVT: Lovenox daily Dispo: admitted under inpatient status. Disposition is to likely home once acute respiratory failure improves, timing unclear. Code: Full, surrogate decision maker he states is his . COVID-19 COVID-19 status: Positive
[2020-08-28] MEDS: REMDESIVIR 100 MG in SODIUM CHLORIDE 0.9% 230 ML 250 ML IV (17:19)
--- NOTE | 2020-08-28 18:43 | PC.NURSE ---
Hypertension this PM, notified Dr Quiroz, who will restart Thiazide from home meds. Started Losartan this AM. Pt continues to wean down on 02. 55L 50% fio2 currently. Good spirits after shower and mobilizing today. Cooperative with all care. IV flushed, Call light in reach.
[2020-08-28] MEDS: hydroCHLOROthiazide 25 MG TABLET 12.5 MG PO (19:21)
[2020-08-28] MEDS: FAMOTIDINE 20 MG TABLET PO (21:00)
[2020-08-28] MEDS: DOCUSATE 250 MG CAPSULE PO (21:00)
[2020-08-28] MEDS: MELATONIN 3 MG TABLET 6 MG PO (21:00)
[2020-08-29] VITALS (15 sets, daily range): BP systolic 125–164; BP diastolic 79–110; PULSE 67–105; RESP 19–28; TEMP 36.6–37.5; O2SAT 88–99
--- NOTE | 2020-08-29 00:06 | RT ---
Called to bedside by RN d/t pt's desat to 70s during coughing fit. Increased FiO2 from 50% to 60%. RN aware.
[2020-08-29 05:13] LABS: Add Manual Diff / Slide Review NO; Basophils Absolute Auto 100 /uL (0-100); Basophils Percent Auto 0.3 % (0-2); Eosinophils Absolute Auto 0 /uL (0-450); Eosinophils Percent Auto 0.1 % (2-4); Hematocrit 39.2 % (41-53); Hemoglobin 12.8 g/dL (13.5-17.5); Lymphocytes Absolute Auto 1100 /uL (1100-4500); Lymphocytes Percent Auto 7.3 % (25-40); Mean Corpuscular HGB Conc 32.7 % (30-36); Mean Corpuscular Hemoglobin 27.7 PG (26-34); Mean Corpuscular Volume 84.7 fL (80-100); Monocytes Absolute Auto 1100 /uL (0-900); Monocytes Percent Auto 7.2 % (3-14); Neutrophils Absolute Auto 13300 /uL (1500-7000); Neutrophils Percent Auto 85.1 % (50-75); Platelet Count 315 X10^3/uL (150-400); Red Blood Cell Count 4.62 X10^6/uL (4.5-5.9); Red Cell Distribution Width 13.5 % (11.6-14.8); White Blood Cell Count 15.6 X10^3/uL (4.5-11.0)
[2020-08-29 05:18] LABS: BUN Creatinine Ratio 36.1 (6-22); Blood Urea Nitrogen 26 mg/dL (9-20); Calcium 8.2 mg/dL (8.4-10.2); Carbon Dioxide 26 mmol/L (22-32); Chloride 99 mmol/L (98-107); Estimated Glomerular Filt Rate > 60.0 mL/min (>60); Glucose 142 mg/dL (80-110); HEMOLYSIS < 15 (0-50); Magnesium 2.2 mg/dL (1.6-2.3); Potassium 3.8 mmol/L (3.4-5.1); Sodium 132 mmol/L (137-145)
[2020-08-29 05:54] LABS: Acinetobacter baumannii Not Detected (Not Detect); Candida albicans Not Detected (Not Detect); Candida glabrata Not Detected (Not Detect); Candida krusei Not Detected (Not Detect); Candida parapsilosis Not Detected (Not Detect); Candida tropicalis Not Detected (Not Detect); E. coli Not Detected (Not Detect); Enterobacter cloacae complex Not Detected (Not Detect); Enterobacteriaceae species Not Detected (Not Detect); Enterococcus species Not Detected (Not Detect); Haemophilus influenzae Not Detected (Not Detect); Listeria monocytogenes Not Detected (Not Detect); Neisseria meningitidis Not Detected (Not Detect); Proteus species Not Detected (Not Detect); Pseudomonas aeruginosa Not Detected (Not Detect); Serratia marcescens Not Detected (Not Detect); Staphylococcus species Not Detected (Not Detect); Streptococcus agalactiae (Gr B Not Detected (Not Detect); Streptococcus pneumonia Not Detected (Not Detect); Streptococcus pyogenes (Gr A) Not Detected (Not Detect); Streptococcus species Not Detected (Not Detect)
[2020-08-29] MEDS: BENZONATATE 100 MG CAPSULE PO (08:51)
[2020-08-29] MEDS: CODEINE/GUAIFENESIN LIQUID 5ML UDC 10 ML PO ×2 (08:51→20:50)
[2020-08-29] MEDS: ENOXAPARIN 40 MG/0.4 ML SYRINGE SUBCUT (08:51)
[2020-08-29] MEDS: LOSARTAN 50 MG TABLET PO (08:51)
[2020-08-29] MEDS: hydroCHLOROthiazide 25 MG TABLET 12.5 MG PO (08:51)
[2020-08-29] MEDS: SODIUM CHLORIDE 0.9% FLUSH 10 ML IV (08:53)
--- NOTE | 2020-08-29 09:05 | CM.DPC ---
DCP: continued: case received yesterday and discussed with Dr. Quiroz and care team during Team Rounds. Rounds were outside of pt's room as he continue on specialized precautions as he continues treatment for COVID + pneumonia with acute respiratory failure. Dr. Quiroz stated that pt is slowly improving, he anticipates a few more days of hospital level care and with a plan for pt to d/c to home when he is stable for same. DCP team will continue to follow.
--- NOTE | 2020-08-29 10:59 | PC.NURSE ---
PT APPEARS MORE FATIGUED/TIRED THIS SHIFT- REPORTS COUGHING FOR MOST OF TUBE COREMAKER- RT INCREASED FIO2 TO 70% WITH IMPROVED SPO2 94-97% PT PRONING AT PRESENT
--- NOTE | 2020-08-29 13:10 | P.PN_ITS ---
Subjective Subjective Date Patient Seen: 08/29/20 Time Patient Seen: 13:14 Interval history: This is a 65-year-old gentleman with a past medical history of hypertension who is admitted for COVID pneumonia and acute hypoxic respiratory failure. Patient was relatively stable overnight, patient improved oxygenation yesterday and was decreased to 55 L and FiO2 50%, overnight oxygen demand slightly increased in-patient with sat02's below 86% and was increased back up to 55 L and FiO2 of 70%. Patient's IV line was lost during the or rasper machine operator hours is currently having a central line placed. Patient states there is no change in his lower extremity edema. His SOB is improved by the increase in the Fio2 to 70%. He denies any chest pain, or palpitations today. Feels overall improved. Patient actively pursed is beating in his proning. Patient continues to improve. Exam Vital Signs (past 8 hours): - 08/29/20 05:17 08/29/20 08:00 08/29/20 10:20 Temperature 98.3 F Pulse Rate 70 98 H 86 Respiratory Rate 27 H 22 26 H Blood Pressure 137/91 H Pulse Oximetry 93 88 L 93 08/29/20 10:47 08/29/20 12:00 Temperature 97.9 F Pulse Rate 90 Respiratory Rate 19 Blood Pressure 125/85 Pulse Oximetry 93 93 Fraction of Inspired Oxygen 0.72 Oxygen Delivery Method High Flow Nasal Cannula Oxygen Flow Rate 55 Narrative Exam Narrative: GENERAL APPEARANCE: Well developed, well nourished, in no acute distress on heated high-flow via nasal cannula. SKIN: Inspection of the skin reveals no rashes, ulcerations or petechiae. HEENT: Normocephalic atraumatic, extraocular muscles are intact, oropharynx is clear and mucous membranes are moist, neck is supple without adenopathy NECK: Supple and symmetric. There was no thyroid enlargement, and no tenderness, or masses were felt. CHEST: Normal AP diameter and normal contour without any kyphoscoliosis. LUNGS: Diminished breath sounds bilaterally at the lung bases with mild bibasilar crackles although limited by available disposable stethascope. CARDIOVASCULAR: There was a regular rate and rhythm without any murmurs, gallops, rubs. Peripheral pulses were 2+ and symmetric. ABDOMEN: Soft and nontender with normal bowel sounds. No ascites was noted. MUSCULOSKELETAL: There was no tenderness or effusions noted. Muscle strength and tone were normal. EXTREMITIES: No cyanosis, clubbing. no edema. NEUROLOGIC: Alert and oriented x 3. Normal affect. Strength is +5/5 in the Upper Extremities and Lower Extremities Bilaterally. Sensation to touch was normal. Objective Labs Result Diagrams: 08/29/20 04:50 08/29/20 04:50 Labs: Laboratory Results - last 24 hr 08/29/20 08/29/20 08/29/20 04:50 04:50 14:40 WBC 15.6 H RBC 4.62 Hgb 12.8 L Hct 39.2 L MCV 84.7 MCH 27.7 MCHC 32.7 RDW 13.5 Plt Count 315 Neut % (Auto) 85.1 H Lymph % (Auto) 7.3 L [place] % (Auto) 7.2 Eos % (Auto) 0.1 L Baso % (Auto) 0.3 Neut # (Auto) 37197 H Lymph # (Auto) 1100 [place] # (Auto) 1100 H Eos # (Auto) 0 Baso # (Auto) 100 Sodium 132 L Potassium 3.8 Chloride 99 Carbon Dioxide 26 BUN 26 H Creatinine 0.72 Estimated GFR > 60.0 BUN/Creatinine Ratio 36.1 H Glucose 142 H Calcium 8.2 L Magnesium 2.2 A. baumannii (PCR) Not detected Ana M albicans (PCR) Not detected C. glabrata (PCR) Not detected C. krusei (PCR) Not detected C. parapsilosis (PCR) Not detected C. tropicalis (PCR) Not detected Enterobacteriac sp PCR Not detected E. cloacae complex PCR Not detected Enterococcus sp PCR Not detected E. coli (PCR) Not detected H. influenzae (PCR) Not detected Klebsiella oxytoca PCR Not detected Klebsiella pneumoniae Not detected List. monocytogenes PCR Not detected N. meningitidis (PCR) Not detected Proteus species (PCR) Not detected Serratia marcescens PCR Not detected Staphylococcus sp PCR Not detected Staph aureus (PCR) Not detected mecA-Methicil Res Gene Not Reportable Streptococcus sp PCR Not detected Group A Strep (PCR) Not detected Strep agalactiae (PCR) Not detected Strep pneumoniae (PCR) Not detected P. aeruginosa (PCR) Not detected Pablo/B-Vanco Res Genes Not Reportable KPC-Carbap Res Gene PCR Not Reportable [facility] Medical History Hypertension Surgical History H/O oral surgery Family History Mother Hypertension Social History household members: spouse Smoking Status: Former smoker Assessment & Plan Assessment & Plan narrative: Patient is 65-year-old male with history of obesity and hypertension admitted with acute respiratory failure due to COVID-19 pneumonia. 1. Acute hypoxic respiratory failure, present on admission -patient's initial symptoms started over 2 weeks prior to admission with more recent worsening of shortness of breath. Officially diagnosed 5-6 days prior to admission in [place]. In the ER patient 82% on room air, requiring heated hi-flow oxygen on admission. Remains on heated hi-flow today after having decreased O2 requirements yesterday did require returning to previous O2 requirements of 55 L and FiO2 70% with an O2 saturation of 93%. - Repeat respiratory panel was negative other than for known COVID-19 infection. - S1Q3T3 pattern on EKG with borderline d-dimer on admission. Given findings and relatively late onset of acute dyspnea CT angiogram was ordered which was negative for PE but does show severe COVID disease. - patient normal tensive, and reports decreasing orthopnea with trace LE edema on exam unchanged. ProBNP very minimally elevated. Received Lasix 40 mg IV on 08/25 with approximately 800 cc diuresis. Unable to obtain TTE given COVID + status. -Yesterday discontinued additional IV Lasix as patient's BUN is rising. Enlarged cardiac silhouette noted on x-ray but no cardiomegaly noted on CT. - RT evaluation and treatment. - continue remdesevir and dexamethasone for severe COVID 19 infection. 2. COVID 19 pneumonia - management as noted above. 3. HTN, chronic -patient on losartan HCTZ at home (50/12.5) -restarted losartan 25 mg q.d. initially, increased to 50 mg daily 08/27 with improvement in BP today. continue to hold thiazide at this time. 4. Right antecubital fossa erythema/pain, improved. -this was noted on 08/26, likely due to IV infiltration, IV line was removed on 08/25 -upper extremity venous duplex ultrasound order to rule out DVT was negative. DVT: Lovenox daily Dispo: admitted under inpatient status. Disposition is to likely home once acute respiratory failure improves, timing unclear. Code: Full, surrogate decision maker he states is his . COVID-19 COVID-19 status: Positive Time Spent With Patient Time with patient: less than 15 minutes
[2020-08-29] MEDS: DEXAMETHASONE 10 MG/ML VIAL 6 MG IV (14:07)
[2020-08-29] MEDS: REMDESIVIR 100 MG in SODIUM CHLORIDE 0.9% 230 ML 250 ML IV (16:33)
[2020-08-29] MEDS: FAMOTIDINE 20 MG TABLET PO (20:49)
[2020-08-29] MEDS: MELATONIN 3 MG TABLET 6 MG PO (20:49)
[2020-08-29] MEDS: DOCUSATE 250 MG CAPSULE PO (20:49)
--- NOTE | 2020-08-29 22:23 | PC.NURSE ---
During shift pt has been A&Ox4 and in a pleasant mood. At rest RR 22 and with activity RR 32. Lung sounds are diminished and pt's ankles and feet are edematous. Pt denies CP, dizziness, N/V. Pt reports that he feels like he is doing a little better. Pt able to adjust self in bed and transfer to commode without assist. Pt becomes SOB with exertion and return to regular RR within 20 seconds of rest. When pt coughs, his SpO2 drops to 86% and takes about 10 seconds to return to >90%. Pt began shift in prone position for two hours. Pt spent the rest of the shift sitting with legs over the bedside and laying supine or side laying. Pt spends the last two hours of this shift prone. Pt felt constipated with relief after two BMs. Pt ate entire dinner. Pt denies pain and was given PRN cough medication at 2100 for a non-productive cough. Midline place in L upper arm during day shift. Both lumens have blood return and flush well. Heparin locked at 2100.
[2020-08-30] VITALS (15 sets, daily range): BP systolic 127–162; BP diastolic 71–101; PULSE 65–100; RESP 18–28; TEMP 36.3–37.4; O2SAT 91–97
--- NOTE | 2020-08-30 01:59 | PC.NURSE ---
Pt up to use BSC had BM and became short of breath. O2 sats dropped to 78%. Pt back in bed and O2 sats back upto 92% now. Pt was able to recover quickly. Now resting comfortably.
[2020-08-30 05:42] LABS: Add Manual Diff / Slide Review NO; Basophils Absolute Auto 100 /uL (0-100); Basophils Percent Auto 0.6 % (0-2); Eosinophils Absolute Auto 0 /uL (0-450); Eosinophils Percent Auto 0.2 % (2-4); Hematocrit 38.8 % (41-53); Hemoglobin 13.1 g/dL (13.5-17.5); Lymphocytes Absolute Auto 900 /uL (1100-4500); Lymphocytes Percent Auto 7.3 % (25-40); Mean Corpuscular HGB Conc 33.7 % (30-36); Mean Corpuscular Hemoglobin 28.6 PG (26-34); Monocytes Absolute Auto 800 /uL (0-900); Monocytes Percent Auto 6.7 % (3-14); Neutrophils Absolute Auto 10100 /uL (1500-7000); Neutrophils Percent Auto 85.2 % (50-75); Platelet Count 242 X10^3/uL (150-400); Red Blood Cell Count 4.57 X10^6/uL (4.5-5.9); Red Cell Distribution Width 13.5 % (11.6-14.8); White Blood Cell Count 11.9 X10^3/uL (4.5-11.0)
[2020-08-30 05:46] LABS: BUN Creatinine Ratio 36.6 (6-22); Blood Urea Nitrogen 26 mg/dL (9-20); Calcium 8.3 mg/dL (8.4-10.2); Carbon Dioxide 29 mmol/L (22-32); Chloride 101 mmol/L (98-107); Estimated Glomerular Filt Rate > 60.0 mL/min (>60); Glucose 134 mg/dL (80-110); Magnesium 2.2 mg/dL (1.6-2.3); Potassium 4.5 mmol/L (3.4-5.1); Sodium 133 mmol/L (137-145)
[2020-08-30 05:50] LABS: HEMOLYSIS 57 (0-50)
[2020-08-30] MEDS: CODEINE/GUAIFENESIN LIQUID 5ML UDC 10 ML PO ×2 (06:07→20:04)
[2020-08-30] MEDS: BENZONATATE 100 MG CAPSULE PO ×2 (06:07→20:04)
[2020-08-30] MEDS: LOSARTAN 50 MG TABLET PO (08:03)
[2020-08-30] MEDS: hydroCHLOROthiazide 25 MG TABLET 12.5 MG PO (08:03)
[2020-08-30] MEDS: ENOXAPARIN 40 MG/0.4 ML SYRINGE SUBCUT (08:04)
[2020-08-30] MEDS: DEXAMETHASONE 10 MG/ML VIAL 6 MG IV (08:05)
--- NOTE | 2020-08-30 10:30 | CM.DPC ---
Addendum entered by Naye Shin LPN 08/30/20 10:44: RAIMUNDO Manriquez stated a shower is planned for pt today. Original Note: DCP: continued. Case discussed in Team Rounds outside pt's room. RT will see pt now as today and in part will recommend whether pt is ready to begin PT/OT. RAIMUNDO Manriquez, caring for pt today, will update Hospitalist KARRI Vargas and PT will be ordered if pt deemed stable for this today. RAIMUNDO Manriquez noted that pt is moving a bit in the room but it is minimal and concern is that pt will continue to weaken. P: does remain home when stable for same. KARRI Vargas noted that pt was at a fragile time in the overall course of his COVID infectious process and that it was important to proceed carefully in terms of increased mobility.
--- NOTE | 2020-08-30 12:40 | P.PN_ITS ---
Subjective Subjective Date Patient Seen: 08/30/20 Interval history: He is seen here today to follow up the Covid Pneumonia and Hypoxia. He is upbeat and in a good mood today. His oxygenation is now 98% on 55 L with 70% FiO2 high-flow nasal cannula oxygen. He is now on day 10 of this illness. We will be titrating his oxygen down again today. Exam Vital Signs (past 8 hours): - 08/30/20 05:00 08/30/20 06:01 08/30/20 08:17 Temperature 97.6 F 97.3 F L Pulse Rate 78 71 79 Respiratory Rate 20 27 H 22 Blood Pressure 151/71 H 162/96 H Pulse Oximetry 93 93 96 08/30/20 10:20 08/30/20 12:00 Temperature 98.9 F Pulse Rate 86 83 Respiratory Rate 26 H 19 Blood Pressure 159/101 H Pulse Oximetry 96 97 Fraction of Inspired Oxygen 0.67 Oxygen Delivery Method High Flow Nasal Cannula,Heated High Flow Oxygen Flow Rate 55 Narrative Exam Narrative: He is alert and oriented x3. He is in no apparent distress. Heart is regular rate and rhythm without murmur Lungs are clear to auscultation bilaterally Abdomen is soft, bowel sounds positive, nontender, no organomegaly. Extremities have no ankle edema He is upbeat and says that he feels like his breathing is improving. Objective Labs Result Diagrams: 08/30/20 05:00 08/30/20 05:00 Labs: Laboratory Results - last 24 hr 08/30/20 08/30/20 05:00 05:00 WBC 11.9 H RBC 4.57 Hgb 13.1 L Hct 38.8 L MCV 85.0 MCH 28.6 MCHC 33.7 RDW 13.5 Plt Count 242 Neut % (Auto) 85.2 H Lymph % (Auto) 7.3 L [place] % (Auto) 6.7 Eos % (Auto) 0.2 L Baso % (Auto) 0.6 Neut # (Auto) 79321 H Lymph # (Auto) 900 L [place] # (Auto) 800 Eos # (Auto) 0 Baso # (Auto) 100 Sodium 133 L Potassium 4.5 Chloride 101 Carbon Dioxide 29 BUN 26 H Creatinine 0.71 Estimated GFR > 60.0 BUN/Creatinine Ratio 36.6 H Glucose 134 H Calcium 8.3 L Magnesium 2.2 PFSH Medical History Hypertension Surgical History H/O oral surgery Family History Mother Hypertension Social History household members: spouse Smoking Status: Former smoker Assessment & Plan Assessment & Plan narrative: This is a 65-year-old male with history of obesity and hypertension admitted with acute respiratory failure due to COVID-19 pneumonia. 1. Acute hypoxic respiratory failure, present on admission -patient's initial symptoms started over 2 weeks prior to admission with more recent worsening of shortness of breath. Officially diagnosed 5-6 days prior to admission in [place]. In the ER patient 82% on room air, requiring heated hi- flow oxygen on admission. Remains on heated hi-flow today after having decreased O2 requirements 2 days ago did require returning to previous O2 requirements of 55 L and FiO2 70% with an O2 saturation of 93%. With increased saturation today we will attempt another titration down. - Repeat respiratory panel was negative other than for known COVID-19 infection. - S1Q3T3 pattern on EKG with borderline d-dimer on admission. Given findings and relatively late onset of acute dyspnea CT angiogram was ordered which was negative for PE but does show severe COVID disease. - patient normal tensive, and reports decreasing orthopnea with trace LE edema on exam unchanged. ProBNP very minimally elevated. Received Lasix 40 mg IV on 08/25 with approximately 800 cc diuresis. Unable to obtain TTE given COVID + status. -Yesterday discontinued additional IV Lasix as patient's BUN is rising. Enla rged cardiac silhouette noted on x-ray but no cardiomegaly noted on CT. - RT evaluation and treatment. - continue remdesevir day 6/10 and dexamethasone day 6/10 for severe COVID 19 infection. Did not stop remdesivir at day 5 as oxygenation improvement trajectory has been prolonged. 2. COVID 19 pneumonia - management as noted above. 3. HTN, chronic -patient on losartan HCTZ at home (50/12.5) -restarted losartan 25 mg q.d. initially, increased to 50 mg daily 08/27 with improvement in BP today. continue to hold thiazide at this time. 4. Right antecubital fossa erythema/pain, improved. -this was noted on 08/26, likely due to IV infiltration, IV line was removed on 08/25 -upper extremity venous duplex ultrasound order to rule out DVT was negative. -currently using PICC line. DVT: Lovenox daily Dispo: admitted under inpatient status. Disposition is to likely home once acute respiratory failure improves, timing unclear. Code: Full, surrogate decision maker he states is his . COVID-19 status: Positive
--- NOTE | 2020-08-30 14:24 | PC.NURSE ---
Addendum entered by Mitra Burnette R.N. 08/30/20 15:00: Ross removed @ 1440. Original Note: AM shift Pt reports sleeping well overnight and feels ready to trial on decreased o2 today. RT in and Pt is @ 55L and 65% Fio2, tolerating well. Up to shower at present. Pt has had ross cath and is now able to mobilize better with less desat and quicker recovery. Order obtained to remove. Midline to LUE flushes well. Denies pain this shift. Using call light for needs and able to make needs known.
[2020-08-30] MEDS: REMDESIVIR 100 MG in SODIUM CHLORIDE 0.9% 230 ML 250 ML IV (15:44)
[2020-08-30] MEDS: SODIUM CHLORIDE 0.9% FLUSH 10 ML IV ×3 (15:45→20:06)
[2020-08-30] MEDS: DOCUSATE 250 MG CAPSULE PO (20:04)
[2020-08-30] MEDS: FAMOTIDINE 20 MG TABLET PO (20:04)
[2020-08-30] MEDS: MELATONIN 3 MG TABLET 6 MG PO (20:04)
--- NOTE | 2020-08-30 21:53 | PC.NURSE ---
shift note: Pt alert and cooperative with care through this shift. Voided 500cc after ross removed. O2 reduced from 65 to 60% with 55L Heated High Flow. Lungs clear throughout, intermittent cough, increased with proning. Medicated with guiafenesin/codiene for cough. Midline dressing changed per protocol, flushed with saline and Heparin. Denies pain or discomfort.
[2020-08-31] VITALS (17 sets, daily range): BP systolic 128–148; BP diastolic 84–97; PULSE 64–103; RESP 17–26; TEMP 36.3–37.3; O2SAT 93–98
[2020-08-31] MEDS: BENZOCAINE/MENTHOL 1 LOZ PKT 1 EACH PO ×2 (01:02→09:09)
[2020-08-31 05:28] LABS: Add Manual Diff / Slide Review NO; Basophils Absolute Auto 100 /uL (0-100); Basophils Percent Auto 0.4 % (0-2); Eosinophils Absolute Auto 100 /uL (0-450); Eosinophils Percent Auto 0.8 % (2-4); Hematocrit 36.1 % (41-53); Hemoglobin 12.3 g/dL (13.5-17.5); Lymphocytes Absolute Auto 1100 /uL (1100-4500); Lymphocytes Percent Auto 8.2 % (25-40); Mean Corpuscular HGB Conc 34.1 % (30-36); Mean Corpuscular Hemoglobin 28.8 PG (26-34); Mean Corpuscular Volume 84.5 fL (80-100); Monocytes Absolute Auto 1200 /uL (0-900); Monocytes Percent Auto 8.5 % (3-14); Neutrophils Absolute Auto 11300 /uL (1500-7000); Neutrophils Percent Auto 82.1 % (50-75); Platelet Count 292 X10^3/uL (150-400); Red Blood Cell Count 4.28 X10^6/uL (4.5-5.9); Red Cell Distribution Width 13.6 % (11.6-14.8); White Blood Cell Count 13.7 X10^3/uL (4.5-11.0)
[2020-08-31 05:38] LABS: BUN Creatinine Ratio 31.6 (6-22); Blood Urea Nitrogen 25 mg/dL (9-20); Calcium 8.2 mg/dL (8.4-10.2); Carbon Dioxide 30 mmol/L (22-32); Chloride 100 mmol/L (98-107); Estimated Glomerular Filt Rate > 60.0 mL/min (>60); Glucose 146 mg/dL (80-110); HEMOLYSIS < 15 (0-50); Magnesium 2.1 mg/dL (1.6-2.3); Potassium 4.2 mmol/L (3.4-5.1); Sodium 133 mmol/L (137-145)
[2020-08-31] MEDS: hydroCHLOROthiazide 25 MG TABLET 12.5 MG PO (09:08)
[2020-08-31] MEDS: FAMOTIDINE 20 MG TABLET PO ×2 (09:08→21:39)
[2020-08-31] MEDS: BENZONATATE 100 MG CAPSULE PO (09:08)
[2020-08-31] MEDS: ENOXAPARIN 40 MG/0.4 ML SYRINGE SUBCUT (09:09)
[2020-08-31] MEDS: LOSARTAN 50 MG TABLET PO (09:09)
[2020-08-31] MEDS: CODEINE/GUAIFENESIN LIQUID 5ML UDC 10 ML PO (09:09)
[2020-08-31] MEDS: SODIUM CHLORIDE 0.9% FLUSH 10 ML IV ×2 (09:10→21:40)
[2020-08-31] MEDS: DEXAMETHASONE 10 MG/ML VIAL 6 MG IV (09:34)
--- NOTE | 2020-08-31 10:46 | PM.PN.1 ---
Subjective Subjective Date Patient Seen: 08/31/20 Time Patient Seen: 08:46 Interval history: Today he has no new concerns. He remains on high flow oxygen. He notes he can not take deep breaths. He has started coughing up thin phlegm. He currently has mild shortness of breath. Exam Vital Signs (past 8 hours): - 08/31/20 05:00 08/31/20 05:03 08/31/20 09:39 Temperature 99.1 F 97.3 F L Pulse Rate 72 64 86 Respiratory Rate 22 26 H 17 Blood Pressure 128/84 131/87 Pulse Oximetry 98 98 96 08/31/20 09:41 Temperature Pulse Rate 84 Respiratory Rate 18 Blood Pressure 131/87 Pulse Oximetry 97 Fraction of Inspired Oxygen 60 Oxygen Delivery Method Heated High Flow Oxygen Flow Rate 55 Narrative Exam Narrative: GENERAL: alert and oriented x3. in no apparent distress. HEART: regular rate and rhythm without murmur LUNGS: poor air movement bilaterally, rhonchi at bases ABDOMEN: soft, bowel sounds normal, nontender, no organomegaly. EXTREMITIES: no edema NEURO: moving all extremities PSYCH: pleasant mood, feels like his breathing is improving. Objective Labs Result Diagrams: 08/31/20 05:00 08/31/20 05:00 Labs: Laboratory Results - last 24 hr 08/31/20 08/31/20 05:00 05:00 WBC 13.7 H RBC 4.28 L Hgb 12.3 L Hct 36.1 L MCV 84.5 MCH 28.8 MCHC 34.1 RDW 13.6 Plt Count 292 Neut % (Auto) 82.1 H Lymph % (Auto) 8.2 L [place] % (Auto) 8.5 Eos % (Auto) 0.8 L Baso % (Auto) 0.4 Neut # (Auto) 98567 H Lymph # (Auto) 1100 [place] # (Auto) 1200 H Eos # (Auto) 100 Baso # (Auto) 100 Sodium 133 L Potassium 4.2 Chloride 100 Carbon Dioxide 30 BUN 25 H Creatinine 0.79 Estimated GFR > 60.0 BUN/Creatinine Ratio 31.6 H Glucose 146 H Calcium 8.2 L Magnesium 2.1 PFSH Medical History Hypertension Surgical History H/O oral surgery Family History Mother Hypertension Social History household members: spouse Smoking Status: Former smoker Assessment & Plan Assessment & Plan narrative: 65-year-old male with history of obesity and hypertension admitted with acute respiratory failure due to COVID-19 pneumonia. 1. Acute hypoxic respiratory failure, present on admission -patient's initial symptoms started over 2 weeks prior to admission with more recent worsening of shortness of breath. Officially diagnosed 5-6 days prior to admission in [place]. In the ER patient 82% on room air, requiring heated hi-flow oxygen on admission. Remains on heated hi-flow, 08/31, with O2 requirements of 55 L and FiO2 60% with an O2 saturation of 94%. With increased saturation today we will attempt another titration down. - Repeat respiratory panel was negative other than for known COVID-19 infection. - S1Q3T3 pattern on EKG with borderline d-dimer on admission. Given findings and relatively late onset of acute dyspnea CT angiogram was ordered which was negative for PE but does show severe COVID disease. - patient normotensive, and reports decreasing orthopnea with trace LE edema on exam unchanged. ProBNP very minimally elevated. Received Lasix 40 mg IV on 08/25 with approximately 800 cc diuresis. Unable to obtain TTE given COVID + status. - discontinued additional IV Lasix as patient's BUN is rising. Enlarged cardiac silhouette noted on x-ray but no cardiomegaly noted on CT. - RT evaluation and treatment. - continue dexamethasone while hospitalized or for 10 day course. Stop remdesivir given clinical improvement 2. COVID 19 pneumonia - management as noted above. 3. HTN, chronic -patient on losartan HCTZ at home (50/12.5) -restarted losartan 25 mg q.d. initially, increased to 50 mg daily 08/27 with improvement in BP today. continue to hold thiazide at this time. 4. Right antecubital fossa erythema/pain, improved. -this was noted on 08/26, likely due to IV infiltration, IV line was removed on 08/25 -upper extremity venous duplex ultrasound order to rule out DVT was negative. -currently using PICC line. DVT: Lovenox daily Dispo: admitted under inpatient status. Disposition is to likely home once acute respiratory failure improves, timing unclear. Code: Full, surrogate decision maker he states is his . COVID-19 status: Positive
--- NOTE | 2020-08-31 17:11 | PC.NURSE ---
Evening Shift: Pt is A and O x4. GRAHAM. Denies pain. Pt received on HHFNC, 45 L flow, FiO2 60%, RT titrated FiO2 down to 55%. RR 24, pt denies SOB. Pt does not appear to have increased WOB. SPO2 95%. Pt is proning when not eating or active. Pt is not on telemetry per MD order. HRR, 70s-90s at rest. BP 130s/80s-90. Edema in BLE, L > R, MD aware. Pt denies nausea, tolerating diet. BM this evening. Pt voiding in urinal independantly. Clear yellow urine, adequate volume. Call light within reach, pt is using it appropriately to call for assistance. Will continue to monitor. Notify MD with changes.
[2020-08-31] MEDS: DOCUSATE 250 MG CAPSULE PO (21:39)
[2020-08-31] MEDS: MELATONIN 3 MG TABLET 6 MG PO (21:40)
[2020-09-01] VITALS (13 sets, daily range): BP systolic 125–160; BP diastolic 82–97; PULSE 59–95; RESP 17–26; TEMP 37–37.4; O2SAT 92–97
[2020-09-01] MEDS: ENOXAPARIN 40 MG/0.4 ML SYRINGE SUBCUT (08:33)
[2020-09-01] MEDS: LOSARTAN 50 MG TABLET PO (08:34)
[2020-09-01] MEDS: hydroCHLOROthiazide 25 MG TABLET 12.5 MG PO (08:34)
[2020-09-01] MEDS: DEXAMETHASONE 10 MG/ML VIAL 6 MG IV (08:35)
[2020-09-01] MEDS: FAMOTIDINE 20 MG TABLET PO ×2 (08:35→20:52)
[2020-09-01] MEDS: SODIUM CHLORIDE 0.9% FLUSH 10 ML IV (08:36)
--- NOTE | 2020-09-01 09:24 | PM.PN.1 ---
Subjective Subjective Date Patient Seen: 09/01/20 Time Patient Seen: 08:24 Interval history: Today he feels his shortness of breath continues to improve. However, he still notes significant limitation to taking deep breaths. Otherwise he has no concerns. Exam Vital Signs (past 8 hours): - 09/01/20 03:00 09/01/20 03:04 09/01/20 05:04 Temperature 98.6 F Pulse Rate 61 69 61 Respiratory Rate 18 24 23 Blood Pressure 160/85 H Pulse Oximetry 97 94 97 09/01/20 07:00 09/01/20 07:10 Temperature 98.6 F Pulse Rate 70 74 Respiratory Rate 18 20 Blood Pressure 146/82 H 160/85 H Pulse Oximetry 96 92 Fraction of Inspired Oxygen 0.49 Oxygen Delivery Method Heated High Flow Oxygen Flow Rate 45 Narrative Exam Narrative: GENERAL: alert and oriented x3. in no apparent distress. HEART: regular rate and rhythm without murmur LUNGS: poor air movement bilaterally, rhonchi at bases ABDOMEN: soft, bowel sounds normal, nontender, no organomegaly. EXTREMITIES: no edema NEURO: moving all extremities PSYCH: pleasant mood, feels like his breathing is improving. Objective Labs Result Diagrams: 08/31/20 05:00 08/31/20 05:00 COUNTS INCLUDE 234 BEDS AT THE [facility] Medical History Hypertension Surgical History H/O oral surgery Family History Mother Hypertension Social History household members: spouse Smoking Status: Former smoker Assessment & Plan Assessment & Plan narrative: 65-year-old male with history of obesity and hypertension admitted with acute respiratory failure due to COVID-19 pneumonia. 1. Acute hypoxic respiratory failure, present on admission -patient's initial symptoms started over 2 weeks prior to admission with more recent worsening of shortness of breath. Officially diagnosed 5-6 days prior to admission in [place]. In the ER patient 82% on room air, requiring heated hi-flow oxygen on admission. Remains on heated hi-flow, 09/01, with O2 requirements of 45 L and FiO2 50% with an O2 saturation of 94%. Will continue attempt at downtitrating O2. - Repeat respiratory panel was negative other than for known COVID-19 infection. - S1Q3T3 pattern on EKG with borderline d-dimer on admission. Given findings and relatively late onset of acute dyspnea CT angiogram was ordered which was negative for PE but does show severe COVID disease. - patient normotensive, and reports decreasing orthopnea with trace LE edema on exam unchanged. ProBNP very minimally elevated. Received Lasix 40 mg IV on 08/25 with approximately 800 cc diuresis. Unable to obtain TTE given COVID + status. - discontinued additional IV Lasix as patient's BUN is rising. Enlarged cardiac silhouette noted on x-ray but no cardiomegaly noted on CT. - RT evaluation and treatment. - continue dexamethasone while hospitalized or for 10 day course. Stop remdesivir given clinical improvement 2. COVID 19 pneumonia - management as noted above. 3. HTN, chronic -patient on losartan HCTZ at home (50/12.5) -restarted losartan 25 mg q.d. initially, increased to 50 mg daily 08/27 with improvement in BP today. continue to hold thiazide at this time. 4. Right antecubital fossa erythema/pain, improved. -this was noted on 08/26, likely due to IV infiltration, IV line was removed on 08/25 -upper extremity venous duplex ultrasound order to rule out DVT was negative. -currently using PICC line. DVT: Lovenox daily Dispo: admitted under inpatient status. Disposition is to likely home once acute respiratory failure improves, timing unclear. Code: Full, surrogate decision maker he states is his . COVID-19 status: Positive
--- NOTE | 2020-09-01 09:53 | PC.NURSE ---
PT REPORTS NO PAIN AND WAS PRONE APPROX 5-6 HOURS ON NOC SHIFT- OTHERWISE SIDE-LYING ( MOSTLY LEFT) HE HAS TOLERATED WEANING THUS FAR OF HHFNC TO 45L/50% WITH MAINTAINED SPO2 OF 95-97% EXPECT FURTHER WEANING PER RESPIRATORY THERAPY- GOOD APPETITE AND VOIDING WELL- UNABLE TO DRAW BLOOD FROM DOUBLE LUMEN MIDLINE IV LINE- LAB CONTACTED TO COME DRAW AM - PT DECLINES ANY COUGH OR PAIN RX
[2020-09-01 12:20] LABS: Hematocrit 40.3 % (41-53); Hemoglobin 13.6 g/dL (13.5-17.5); Mean Corpuscular HGB Conc 33.8 % (30-36); Mean Corpuscular Hemoglobin 28.7 PG (26-34); Mean Corpuscular Volume 84.7 fL (80-100); Platelet Count 312 X10^3/uL (150-400); Red Blood Cell Count 4.76 X10^6/uL (4.5-5.9); Red Cell Distribution Width 13.8 % (11.6-14.8); White Blood Cell Count 13.4 X10^3/uL (4.5-11.0)
[2020-09-01 12:25] LABS: BUN Creatinine Ratio 29.8 (6-22); Blood Urea Nitrogen 25 mg/dL (9-20); Calcium 8.5 mg/dL (8.4-10.2); Carbon Dioxide 28 mmol/L (22-32); Chloride 99 mmol/L (98-107); Estimated Glomerular Filt Rate > 60.0 mL/min (>60); Glucose 188 mg/dL (80-110); HEMOLYSIS < 15 (0-50); Potassium 4.1 mmol/L (3.4-5.1); Sodium 132 mmol/L (137-145)
[2020-09-01] MEDS: MELATONIN 3 MG TABLET 6 MG PO (20:52)
[2020-09-01] MEDS: DOCUSATE 250 MG CAPSULE PO (20:52)
[2020-09-01] MEDS: CODEINE/GUAIFENESIN LIQUID 5ML UDC 10 ML PO (20:53)
[2020-09-02] VITALS (11 sets, daily range): BP systolic 141–168; BP diastolic 87–93; PULSE 59–100; RESP 17–22; TEMP 36.9–37.4; O2SAT 91–97
[2020-09-02 05:14] LABS: Hematocrit 38.1 % (41-53); Hemoglobin 13.1 g/dL (13.5-17.5); Mean Corpuscular HGB Conc 34.3 % (30-36); Mean Corpuscular Hemoglobin 29.3 PG (26-34); Mean Corpuscular Volume 85.6 fL (80-100); Platelet Count 260 X10^3/uL (150-400); Red Blood Cell Count 4.46 X10^6/uL (4.5-5.9); Red Cell Distribution Width 13.7 % (11.6-14.8); White Blood Cell Count 10.9 X10^3/uL (4.5-11.0)
[2020-09-02 05:29] LABS: BUN Creatinine Ratio 32.5 (6-22); Blood Urea Nitrogen 25 mg/dL (9-20); Calcium 8.4 mg/dL (8.4-10.2); Carbon Dioxide 31 mmol/L (22-32); Chloride 101 mmol/L (98-107); Estimated Glomerular Filt Rate > 60.0 mL/min (>60); Glucose 135 mg/dL (80-110); HEMOLYSIS < 15 (0-50); Potassium 4.4 mmol/L (3.4-5.1); Sodium 134 mmol/L (137-145)
--- NOTE | 2020-09-02 06:09 | PC.NURSE ---
Dry Starch Supervisor Note-Patient slept throughout night mostly on left side, proned occasionally, HHFNC decreased to 40L/.35% FIO2 at midnight, SpO2 remained >92%, lungs sounds clear with slight coarseness anteriorly, coughing has subsided. HFNC set up in room for transition this am.
[2020-09-02] MEDS: LOSARTAN 50 MG TABLET PO (10:10)
[2020-09-02] MEDS: hydroCHLOROthiazide 25 MG TABLET 12.5 MG PO (10:12)
[2020-09-02] MEDS: DEXAMETHASONE 10 MG/ML VIAL 6 MG IV (10:13)
[2020-09-02] MEDS: ENOXAPARIN 40 MG/0.4 ML SYRINGE SUBCUT (10:14)
[2020-09-02] MEDS: FAMOTIDINE 20 MG TABLET PO ×2 (10:14→20:29)
[2020-09-02] MEDS: SODIUM CHLORIDE 0.9% FLUSH 10 ML IV ×3 (10:15→20:30)
--- NOTE | 2020-09-02 11:08 | PM.PN.1 ---
Subjective Subjective Date Patient Seen: 09/02/20 Time Patient Seen: 08:08 Interval history: Today he continues to feel much better. Still short of breath, but he feels he can take deeper breaths now. He has been decreased to 7L of oxygen. Exam Vital Signs (past 8 hours): - 09/02/20 03:30 09/02/20 05:00 09/02/20 05:28 Temperature 98.7 F Pulse Rate 61 84 64 Respiratory Rate 20 20 20 Blood Pressure 165/91 H Pulse Oximetry 93 94 97 09/02/20 07:35 09/02/20 08:00 Temperature 98.5 F Pulse Rate 77 Respiratory Rate 17 Blood Pressure 154/93 H Pulse Oximetry 94 94 Fraction of Inspired Oxygen 35 Oxygen Delivery Method High Flow Nasal Cannula Oxygen Flow Rate 7 Narrative Exam Narrative: GENERAL: alert and oriented x3. in no apparent distress. HEART: regular rate and rhythm without murmur LUNGS: improving air movement bilaterally, rhonchi at bases ABDOMEN: soft, bowel sounds normal, nontender, no organomegaly. EXTREMITIES: no edema NEURO: moving all extremities PSYCH: pleasant mood, feels like his breathing is improving. Objective Labs Result Diagrams: 09/02/20 04:53 09/02/20 04:53 Labs: Laboratory Results - last 24 hr 09/01/20 09/01/20 09/02/20 11:37 11:37 04:53 WBC 13.4 H 10.9 RBC 4.76 4.46 L Hgb 13.6 13.1 L Hct 40.3 L 38.1 L MCV 84.7 85.6 MCH 28.7 29.3 MCHC 33.8 34.3 RDW 13.8 13.7 Plt Count 312 260 Sodium 132 L Potassium 4.1 Chloride 99 Carbon Dioxide 28 BUN 25 H Creatinine 0.84 Estimated GFR > 60.0 BUN/Creatinine Ratio 29.8 H Glucose 188 H Calcium 8.5 09/02/20 04:53 WBC RBC Hgb Hct MCV MCH MCHC RDW Plt Count Sodium 134 L Potassium 4.4 Chloride 101 Carbon Dioxide 31 BUN 25 H Creatinine 0.77 Estimated GFR > 60.0 BUN/Creatinine Ratio 32.5 H Glucose 135 H Calcium 8.4 PFSH Medical History Hypertension Surgical History H/O oral surgery Family History Mother Hypertension Social History household members: spouse Smoking Status: Former smoker Assessment & Plan Assessment & Plan narrative: 65-year-old male with history of obesity and hypertension admitted with acute respiratory failure due to COVID-19 pneumonia. 1. Acute hypoxic respiratory failure, present on admission -patient's initial symptoms started over 2 weeks prior to admission with more recent worsening of shortness of breath. Officially diagnosed 5-6 days prior to admission in [place]. In the ER patient 82% on room air, requiring heated hi-flow oxygen on admission. Remains on heated hi-flow, 09/01, with O2 requirements of 7L with an O2 saturation of 95%. Will continue attempt at downtitrating O2. - Repeat respiratory panel was negative other than for known COVID-19 infection. - S1Q3T3 pattern on EKG with borderline d-dimer on admission. Given findings and relatively late onset of acute dyspnea CT angiogram was ordered which was negative for PE but does show severe COVID disease. - patient normotensive, and reports decreasing orthopnea with trace LE edema on exam unchanged. ProBNP very minimally elevated. Received Lasix 40 mg IV on 08/25 with approximately 800 cc diuresis. Unable to obtain TTE given COVID + status. - discontinued additional IV Lasix as patient's BUN is rising. Enlarged cardiac silhouette noted on x-ray but no cardiomegaly noted on CT. - RT evaluation and treatment. - continue dexamethasone while hospitalized. Stopped remdesivir given clinical improvement 2. COVID 19 pneumonia - management as noted above. 3. HTN, chronic -patient on losartan HCTZ at home (50/12.5) -restarted losartan 25 mg q.d. initially, increased to 50 mg daily 08/27 with improvement in BP today. continue to hold thiazide at this time. 4. Right antecubital fossa erythema/pain, improved. -this was noted on 08/26, likely due to IV infiltration, IV line was removed on 08/25 -upper extremity venous duplex ultrasound order to rule out DVT was negative. -currently using PICC line. DVT: Lovenox daily Dispo: admitted under inpatient status. Disposition is to likely home once acute respiratory failure improves, timing unclear. Code: Full, surrogate decision maker he states is his .
--- NOTE | 2020-09-02 11:17 | PC.NURSE ---
PT TOLERATING WEANING OF O2- PLACED ON 7L HFNC THEN REDUCED BY 2L NC - TO 5L HFNC WITH SPO2 94% -PT SITTING UP IN CHAIR AND PLEASED WITH HIS PROGRESS
--- NOTE | 2020-09-02 14:22 | CM.DPC ---
DCP Cont: Per MD, pt making good medical progress and goal is hopefully for pt to be able to d/c home by Monday this week if he continues to improve and tolerate oxygen weaning. Per RN, pt tolerated weaning from HFNC 7L to 5L and has been able to sit up in the chair, shower, and proning well for hours at night. Currently no concerns with his strength or oxygen levels and anticipate continued improvements. Plan: SW to follow closely for continued oxygen weaning and proning towards plan of d/c home in the next couple days when medically stable. SW to follow for any further identified discharge planning needs. ELLIE Blake
[2020-09-02] MEDS: MELATONIN 3 MG TABLET 6 MG PO (20:29)
[2020-09-02] MEDS: DOCUSATE 250 MG CAPSULE PO (20:29)
[2020-09-03] VITALS (8 sets, daily range): BP systolic 118–160; BP diastolic 85–100; PULSE 61–91; RESP 18–24; TEMP 36.6–37.7; O2SAT 91–96
[2020-09-03] MEDS: BENZONATATE 100 MG CAPSULE PO (01:21)
[2020-09-03 05:11] LABS: Hematocrit 37.7 % (41-53); Hemoglobin 12.6 g/dL (13.5-17.5); Mean Corpuscular HGB Conc 33.5 % (30-36); Mean Corpuscular Hemoglobin 28.7 PG (26-34); Mean Corpuscular Volume 85.5 fL (80-100); Platelet Count 241 X10^3/uL (150-400); Red Blood Cell Count 4.41 X10^6/uL (4.5-5.9); Red Cell Distribution Width 13.6 % (11.6-14.8); White Blood Cell Count 11.7 X10^3/uL (4.5-11.0)
[2020-09-03 05:22] LABS: BUN Creatinine Ratio 30.1 (6-22); Blood Urea Nitrogen 25 mg/dL (9-20); Calcium 8.6 mg/dL (8.4-10.2); Carbon Dioxide 31 mmol/L (22-32); Chloride 100 mmol/L (98-107); Estimated Glomerular Filt Rate > 60.0 mL/min (>60); Glucose 136 mg/dL (80-110); HEMOLYSIS < 15 (0-50); Potassium 4.1 mmol/L (3.4-5.1); Sodium 134 mmol/L (137-145)
[2020-09-03] MEDS: DEXAMETHASONE 10 MG/ML VIAL 6 MG IV (09:18)
[2020-09-03] MEDS: hydroCHLOROthiazide 25 MG TABLET 12.5 MG PO (09:19)
[2020-09-03] MEDS: FAMOTIDINE 20 MG TABLET PO ×2 (09:19→20:15)
[2020-09-03] MEDS: LOSARTAN 50 MG TABLET PO (09:19)
[2020-09-03] MEDS: ENOXAPARIN 40 MG/0.4 ML SYRINGE SUBCUT (09:20)
--- NOTE | 2020-09-03 10:27 | CM.DPC ---
DCP: continued: case discussed in Team Rounds outside of pt's room. (COVID +) Dr. Gutierrez confirms that pt is continuing to improve. PT/OT is appropriate now and this is ordered. RAIMUNDO Manriquez reports that pt is very much hoping for a d/c to his home tomorrow and has been today up in the room. P: dc to home setting: tomorrow if he continues to improve as expected.
--- NOTE | 2020-09-03 10:35 | PC.NURSE ---
Am shift Pt is A/o x4, up to chair and shower. Pt has progressed down to NC @ 4L this AM with consistent Spo2 >92%. Lungs are CTA, Pt is thrilled with progress and continues to do all treatments requested of him. Reports his goal is d/c tomorrow. PT and OT to follow up today, Pt has been ambulating in room, does steady himself with objects. Very aware of his current deconditioned status. Enc ambulation and stool softeners this shift. Midline flushes well.
--- NOTE | 2020-09-03 12:07 | OT.IP.EVAL ---
Current Diagnoses COVID-19 (08/24/20) Past Medical History (Last [facility] 08[facility]29[facility]20 [facility] 13:23 [facility] Hypertension Surgical History ([facility]29[facility]20 @ 13:23 [facility] H/O oral surgery Occupational Therapy Inpatient Evaluation/Re-Eval M1 PT/OT-IP Prior Functional Status Start: 09/03/20 13:12 Freq: NEEDED Status: Active Protocol: Document 09/03/20 13:12 [facility] (Rec: 09/03/20 13:27 [facility] [id number]) Medical Review Prior Functional Status Medical History Reviewed Yes Communication Independent Mobility and Gait Independent and does not use any devices. Activities of Daily Living and IADL's Independent with all ADl's, IADL's, ride motorcycles and does own yard work. Pt's pays the bills. Social History Household Members spouse Living Arrangements RV Number of Floors (Floors) One Floor Number of Stairs To Enter/Railing? 5 steps with narrow bilateral rails. Home Environment Walk in Shower,Tub/Shower Doors Home Equipment Straight Cane,Grab Bars In Shower Additional Social History Comment There is a counter to the right of the toilet in pt's bathroom. Pt states can just use his 's walk in shower for now and get a shower chair if needed. M2 OT-IP Current Condition Start: 09/03/20 13:12 Freq: Status: Active Protocol: Document 09/03/20 13:12 [facility] (Rec: 09/03/20 13:27 [facility] [id number]) Occupational Therapy Current Condition Current Condition Evaluation Date 09/03/20 Treatment Diagnosis COVID-19, acute hypoxic respiratory failure, decreased activity tolerance Diagnosis Onset Date 08/24/20 M3 OT- IP Subjective and Pain Start: 09/03/20 13:12 Freq: Status: Active Protocol: Document 09/03/20 13:12 [facility] (Rec: 09/03/20 13:27 [facility] [id number]) OT- Subjective Occupational Therapy Visit Type Type Initial Evaluation Visit Start Time 11:35 Visit Stop Time 12:07 Total Visit Minutes 32 Occupational Therapy Visit Comments Patient Comments Pt agreed to get up for OT eval. Patient/Caregiver Goals TO go home. OT Pain Assessment Pain When Pain Assessed At Rest Pain Present Pain Present Denied Pain M4 OT- IP ADL's Start: 09/03/20 13:12 Freq: Status: Active Protocol: Document 09/03/20 13:12 [facility] (Rec: 09/03/20 13:27 [facility] [id number]) OT [id number] Comments OT Self-Feeding Comments Not at meal time. OT ADL-Grooming General Evaluation Grooming Ability Standby Assistance Comments OT Grooming Comments Just assist to help manage O2 line. OT ADL-Oral Care General Eval Oral Care Ability Independent OT ADL-Dressing General Eval Lower Body Dressing Ability Standby Assistance Comments OT Dressing Comments Pt able to michelle/doff his socks and shoes while seated. Pt needing increased time to tie his shoes. O2 level at 4L dropped to 81% and needing 1.5 minutes to reach 90%. OT ADL-Toileting Comments OT Toileting Comments Pt not having to go as just used the toilet prior. OT ADL-Bathing Comments OT Bathing Comments To do tomorrow in OT to best determine if a shower chair is needed. Equipment list given to pt via nursing aid. M5 OT- IP IADL's Start: 09/03/20 13:12 Freq: Status: Active Protocol: Document 09/03/20 13:12 [facility] (Rec: 09/03/20 13:27 [facility] [id number]) OT-Instrumental Activities of Daily Living Home Safety Awareness Awareness of Need for Assistance at Home Good Awareness Ability to Problem Solve Emergency Able to Problem Solve Situations Home Safety Comments At this time do to decreased activity tolerance, would be best for pt's to assist for IADL needs and supervision for ADL's as needed. Medication Management Medication Management No Deficits Identified Money Management Money Management No Deficits Identified Meal Preparation Meal Preparation Caregiver Provides Assist Voltage Regulator Assembler Voltage Regulator Assembler Caregiver Provides Assist M6 OT- IP Functional Cognition Start: 09/03/20 13:12 Freq: Status: Active Protocol: Document 09/03/20 13:12 [facility] (Rec: 09/03/20 13:27 [facility] [id number]) Cognitive Factors Limiting Selfcare Function Cognitive Ability Level of Alertness Alert Patient Orientation Name,Age,Birthday,Month,Date, Year,Day of Week,Place, Situation Attention Span Ability Capable of Focused Attention, Capable of Sustained Attention Ability to Follow Commands Able to Follow Multi-Step Commands Memory Description No Deficits Noted Safety Awareness No Deficits Noted Cognitive Comments Cognitive Assessment Comments At the time of OT eval no cognitive deficits noted and pt appears to be at baseline. OT- Vision and Hearing OT- Hearing Assessment OT- Hearing Assessment WFL OT- Vision Assessment Visual Acuity Glasses For Reading M7 OT- IP Mobility and Balance Start: 09/03/20 13:12 Freq: Status: Active Protocol: Document 09/03/20 13:12 [facility] (Rec: 09/03/20 13:27 [facility] [id number]) OT- Bed Mobility Assessment Supine to Sit Supine to Sit Assist Standby Assistance Sit to Supine Sit to Supine Assist Standby Assistance OT-Transfer Assessment Sit to and From Stand Sit to and from Stand Standby Assistance Transfers Transfer Ability Standby Assistance Technique Transfer Destination Chair Transfer Technique Stand Step Pivot Devices Transfer Assistive Devices Gait Belt Comments Mobility Comments SBA with gait belt and assist to help manage O2 line for level surfaces. OT- Balance Assessment Sitting Balance and Reactions Static Sitting Balance Ability Normal Dynamic Sitting Balance Ability Normal Standing Balance and Reactions Static Standing Balance Ability Normal Dynamic Standing Balance Ability Fair Comments Other Balance Tests/Deviations/Treatment Pt able to turn around 360 : degrees in both directions with slight bobble but no loss of balance. M8 OT- IP Objective Assessments Start: 09/03/20 13:12 Freq: Status: Active Protocol: Document 09/03/20 13:12 [facility] (Rec: 09/03/20 13:27 [facility] [id number]) OT Gross Range of Motion Upper Extremity Range of Motion Assessment Within Functional Limits OT Strength Upper Extremity Strength Assessment Within Functional Limits OT-Muscle Tone Assessment Muscle Tone WNL Yes M9 OT- IP Assessment and Plan Start: 09/03/20 13:12 Freq: Status: Active Protocol: Document 09/03/20 13:12 [facility] (Rec: 09/03/20 13:27 [facility] [id number]) OT Summary Assessment and Plan Potential Rehabilitation Potential Excellent Analytic Complexity at Evaluation Low Summary OT Impairments Balance,Functional Mobility, Dressing,Bathing,Activity Tolerance Progress Towards Goals Progressing Toward Goals Assessment Summary Pt low complexity and main barrier is decreased activity tolerance and now needing 4L of O2. Pt after doing grooming and LB dressing needs dropped from 94 to 81% and needing 90 seconds to recovery up to 91% . Pt to be seen by OT for another session to help determine whether pt needs a shower chair which is suggested for safety at this time. Goals Grooming Goal Independent Dressing Goal Independent Toileting Goal Independent Bathing Goal Independent Toilet Transfer Goal Independent Shower Transfer Goal Independent Days to Meet Goals 4 Frequency of Treatment Frequency Of Treatment Once a Day Treatment Plan OT Treatment Plan ADL Training,Functional Mobility,Patient/Family Education,Discharge Planning Other Treatment Recommendations and Next shower Treatment Focus Discharge Recommendations OT Discharge Recommendations Home with Assistance Home Equipment Needs shower chair Transportation Needs at Discharge Private Vehicle
[2020-09-03] MEDS: BISACODYL 5 MG TABLET 10 MG PO (13:08)
--- NOTE | 2020-09-03 14:35 | PM.PN.1 ---
Subjective Subjective Date Patient Seen: 09/03/20 Time Patient Seen: 07:35 Interval history: He continues to feel better with improving shortness of breath. He is down to 5L oxygen currently Exam Vital Signs (past 8 hours): - 09/03/20 08:00 09/03/20 10:15 09/03/20 12:00 Temperature 98.4 F 97.8 F Pulse Rate 78 91 H 90 Respiratory Rate 18 20 20 Blood Pressure 154/100 H 131/85 Pulse Oximetry 94 96 95 Fraction of Inspired Oxygen 35 Oxygen Delivery Method High Flow Nasal Cannula Oxygen Flow Rate 3 Narrative Exam Narrative: GENERAL: alert and oriented x3. in no apparent distress. HEART: regular rate and rhythm without murmur LUNGS: improving air movement bilaterally ABDOMEN: soft, bowel sounds normal, nontender, no organomegaly. EXTREMITIES: no edema NEURO: moving all extremities PSYCH: pleasant mood, feels like his breathing is improving. Objective Labs Result Diagrams: 09/03/20 04:43 09/03/20 04:43 Labs: Laboratory Results - last 24 hr 09/03/20 09/03/20 04:43 04:43 WBC 11.7 H RBC 4.41 L Hgb 12.6 L Hct 37.7 L MCV 85.5 MCH 28.7 MCHC 33.5 RDW 13.6 Plt Count 241 Sodium 134 L Potassium 4.1 Chloride 100 Carbon Dioxide 31 BUN 25 H Creatinine 0.83 Estimated GFR > 60.0 BUN/Creatinine Ratio 30.1 H Glucose 136 H Calcium 8.6 PFSH Medical History Hypertension Surgical History H/O oral surgery Family History Mother Hypertension Social History household members: spouse Smoking Status: Former smoker Assessment & Plan Assessment & Plan narrative: 5-year-old male with history of obesity and hypertension admitted with acute respiratory failure due to COVID-19 pneumonia. 1. Acute hypoxic respiratory failure, present on admission -patient's initial symptoms started over 2 weeks prior to admission with more recent worsening of shortness of breath. Officially diagnosed 5-6 days prior to admission in [place]. In the ER patient 82% on room air, requiring heated hi-flow oxygen on admission. Now down to 5L oxygen. Will continue attempt at downtitrating O2. - Repeat respiratory panel was negative other than for known COVID-19 infection. - S1Q3T3 pattern on EKG with borderline d-dimer on admission. Given findings and relatively late onset of acute dyspnea CT angiogram was ordered which was negative for PE but does show severe COVID disease. - patient normotensive, and reports decreasing orthopnea with trace LE edema on exam unchanged. ProBNP very minimally elevated. Received Lasix 40 mg IV on 08/25 with approximately 800 cc diuresis. Unable to obtain TTE given COVID + status. - discontinued additional IV Lasix as patient's BUN is rising. Enlarged cardiac silhouette noted on x-ray but no cardiomegaly noted on CT. - RT evaluation and treatment. - continue dexamethasone while hospitalized. Stopped remdesivir given clinical improvement 2. COVID 19 pneumonia - management as noted above. 3. HTN, chronic -patient on losartan HCTZ at home (50/12.5) -restarted losartan 25 mg q.d. initially, increased to 50 mg daily 08/27 with improvement in BP today. continue to hold thiazide at this time. 4. Right antecubital fossa erythema/pain, improved. -this was noted on 08/26, likely due to IV infiltration, IV line was removed on 08/25 -upper extremity venous duplex ultrasound order to rule out DVT was negative. -currently using PICC line. DVT: Lovenox daily Dispo: admitted under inpatient status. Disposition is to likely home soon. Code: Full, surrogate decision maker he states is his . Time Spent With Patient Time with patient: less than 15 minutes
--- NOTE | 2020-09-03 14:53 | PT.IIE ---
Current Diagnoses COVID-19 (08/24/20) Surgical History (Last Reviewed 08/29/20 @ 13:23 [facility] H/O oral surgery Medical History (Last Reviewed 08/29/20 @ 13:23 [facility] Hypertension Physical Therapy Inpatient Evaluation/Re-Eval M1 PT/OT-IP Prior Functional Status Start: 09/03/20 13:12 Freq: NEEDED Status: Active Protocol: Document 09/03/20 14:53 AW (Rec: 09/03/20 15:19 AW [id number]) Medical Review Prior Functional Status Medical History Reviewed Yes Communication Independent Mobility and Gait Independent and does not use any devices. Activities of Daily Living and IADL's Independent with all ADl's, IADL's, ride motorcycles and does own yard work. Pt's pays the bills. Social History Household Members spouse Living Arrangements RV Number of Floors (Floors) One Floor Number of Stairs To Enter/Railing? 5 steps with narrow bilateral rails. Home Environment Walk in Shower,Tub/Shower Doors Home Equipment Straight Cane,Grab Bars In Shower Additional Social History Comment There is a counter to the right of the toilet in pt's bathroom. Pt states can just use his 's walk in shower for now and get a shower chair if needed. M2 PT-IP Current Condition Start: 09/03/20 14:03 Freq: NEEDED Status: Active Protocol: Document 09/03/20 14:53 AW (Rec: 09/03/20 15:19 AW [id number]) Physical Therapy Current Condition Current Condition Evaluation Date 09/03/20 Treatment Diagnosis COVID +, acute hypoxic respiratory failure; difficulty in walking Onset Date 08/24/20 Precautions Other Precautions COVID+ precautions M3 PT-IP Subjective Start: 09/03/20 14:03 Freq: NEEDED Status: Active Protocol: Document 09/03/20 14:53 AW (Rec: 09/03/20 15:19 AW [id number]) Subjective Physical Therapy Visit Type Type Initial Evaluation Visit Start Time 14:18 Visit Stop Time 14:44 Total Visit Minutes 26 Physical Therapy Visit Comments Patient Comments Pt is willing to participate with PT Patient Goals Pt hopes to go home tomorrow Therapy Pain Assessment Pain When Pain Assessed During Mobility Pain Present Pain Present Denied Pain M4 PT-IP Mobility and Gait Start: 09/03/20 14:03 Freq: NEEDED Status: Active Protocol: Document 09/03/20 14:53 AW (Rec: 09/03/20 15:19 AW [id number]) PT-Bed Mobility Assessment Supine to Sit Supine to Sit Standby Assistance Sit to Supine Sit to Supine Standby Assistance Scooting Scooting to Edge of Bed Standby Assistance PT-Transfer Assessment Sit to and From Stand Sit to and from Stand Standby Assistance Equipment Transfer Assistive Device None,Gait Belt Orthotic/Prosthetic Devices or Brace: No Transfers Transfer Destination Bed,Chair Transfer Technique Stand Step Pivot Transfer Ability Level of Assist Standby Assistance Comments Mobility Comments Pt was sitting up in the chair working with the incentive inspirometer as PT arrived. SpO2 was 95% on 2.5 L/min via NC. Pt stood from the chair and demonstrated bed mobility SBA as SpO2 dropped to 90%. Recovered to 94% within one minute. Pt stood and ambulated around the room a total of 50 feet without AD SBA. He transferred to the chair with SpO2 82%. Recovery to 93% took 2 minutes. Pt also completed 30 second sit to stand, holding SpO2 steady at 92% until finished. Sats then dropped to 81% and took 2.5 minutes to recover to 93%. Pt was left with call light in reach. Gait Assessment Gait Gait Assistance Required: Standby Assistance Distance (Feet) 50 Assistive Devices Assistive Device None,Gait Belt Orthotic/Prosthetic Devices or Brace: No Gait Deviations General Gait Pattern Within Normal Limits,Flexed Trunk Factors Limiting Gait Function Factors Limiting Gait Function Decreased Activity Tolerance, Respiratory Distress Comments Gait Comments Pt ambulated SBA without device and without reaching for objects in the room. Respiratory effort increased with short distance and SpO2 response is documented in mobility comments. Stair Climbing Assessment Comments Stair Climbing Comments Not assessed. PT-Balance Assessment Sitting Balance and Reactions Static Sitting Balance Ability Normal Dynamic Sitting Balance Ability Normal Standing Balance and Reactions Static Standing Balance Ability Good Dynamic Standing Balance Ability Good Device Used no AD Balance Tests Single Limb Standing 8-10 sec BLE Romberg WNL EO and EC Comments Other Balance Tests/Deviations/Treatment Pt able to complete rapid : turns to the left and to the right without LOB. Functional Assessments Functional Tests 30 Seconds Sit to Stand Test Score: 6. SpO2 from 93% to 81% . 2.5 min to recover. Other Functional Tests Performed 30 sec sit to stand performed without UE assist. M5 PT-IP Objective Assessments Start: 09/03/20 14:03 Freq: NEEDED Status: Active Protocol: Document 09/03/20 14:53 AW (Rec: 09/03/20 15:19 AW [id number]) Orientation Orientation/Cognition Level of Alertness Alert Orientation Name,Day of Week,Place, Situation Language Function Ability No Deficits Noted Safety Awareness Understands Safety Issues Memory Description No Deficits Noted Gross Range of Motion Lower Extremity ROM Assessment Within Functional Limits Strength Lower Extremity Strength Assessment Within Functional Limits Hip 4+/5 Knee 5/5 Ankle 5/5 Sensation Assessment Sensation Gross Sensation WNL Muscle Tone Muscle Tone WNL Yes M6 PT-IP Treatment Start: 09/03/20 14:03 Freq: NEEDED Status: Active Protocol: Document 09/03/20 14:53 AW (Rec: 09/03/20 15:19 AW [id number]) Physical Therapy Treatment Exercises Exercises Ankle Pumps,Gluteal Sets,Quad Sets Education Education Provided Safety Other Treatments Other Treatment Performed Provided education on role of PT, plan of care, energy conservation. M7 PT-IP Assessment and Plan Start: 09/03/20 14:03 Freq: NEEDED Status: Active Protocol: Document 09/03/20 14:53 AW (Rec: 09/03/20 15:19 AW [id number]) PT Summary Assessment and Plan Potential Rehabilitation Potential Good Status of Condition at Evaluation Evolving Summary Impairments Gait,Activity Tolerance Assessment Summary José Miguel is a 65yo man with acute hypoxic respiratory failure secondary to COVID pneumonia. He is independent in all regards at baseline and lives with his in a double-wide mobile home. Dynamic balance was good on limited evaluation. Activity tolerance was quite limited due to respiratory distress. Pt scored 6 repetitions on 30 Second Sit to Stand test with SpO2 drop 93% to 81%. This score is well below norms (14 repetitions) for age and gender matched peers (Kunal et al, 1999). PT recommends environmental considerations and energy conservation techniques to accommodate for reduced capacity. Pt will be safe to discharge home with assist once medically stable. Goals Bed Mobility Goal Independent Transfer Goal Independent Gait Goal Independent Gait Distance 100 feet with SpO2 >90% Other Goals - up/down 5 steps with B rails SBA and maintaining SpO2 >90% Frequency of Treatment Frequency Of Treatment Once a Day Treatment Plan Physical Therapy Treatment Plan Bed Mobility Training,Transfer Training,Gait Training, Therapeutic Exercise,Balance Retraining,Discharge Planning, Hot or Cold Pack Other Recommendations and Next Treatment ambulation; stairs Focus Precautions Other Precautions Covid + precautions Recommendations To Nursing Amount of Assist Needed Standby Assistance Discharge Recommendations PT Discharge Recommendations Home with Assistance Other Discharge Recommendations outpt pulmonary rehab Transportation Needs at Discharge Private Vehicle
[2020-09-03] MEDS: DOCUSATE 250 MG CAPSULE PO (20:14)
[2020-09-03] MEDS: MELATONIN 3 MG TABLET 6 MG PO (20:15)
[2020-09-03] MEDS: SODIUM CHLORIDE 0.9% FLUSH 10 ML IV (20:16)
[2020-09-04 00:43] VITALS: BP 165/93; PULSE 72; RESP 20; TEMP 36.8; O2SAT 94
[2020-09-04 04:55] LABS: Add Manual Diff / Slide Review NO; Basophils Absolute Auto 100 /uL (0-100); Basophils Percent Auto 0.5 % (0-2); Eosinophils Absolute Auto 0 /uL (0-450); Eosinophils Percent Auto 0.3 % (2-4); Hematocrit 40.1 % (41-53); Hemoglobin 13.4 g/dL (13.5-17.5); Lymphocytes Absolute Auto 1500 /uL (1100-4500); Lymphocytes Percent Auto 12.7 % (25-40); Mean Corpuscular HGB Conc 33.5 % (30-36); Mean Corpuscular Hemoglobin 28.7 PG (26-34); Mean Corpuscular Volume 85.6 fL (80-100); Monocytes Absolute Auto 1100 /uL (0-900); Monocytes Percent Auto 9.2 % (3-14); Neutrophils Absolute Auto 9000 /uL (1500-7000); Neutrophils Percent Auto 77.3 % (50-75); Platelet Count 220 X10^3/uL (150-400); Red Blood Cell Count 4.68 X10^6/uL (4.5-5.9); Red Cell Distribution Width 13.7 % (11.6-14.8); White Blood Cell Count 11.6 X10^3/uL (4.5-11.0)
[2020-09-04 05:01] LABS: Alanine Aminotransferase 38 IU/L (<50); Albumin 2.8 g/dL (3.5-5.0); Alkaline Phosphatase 65 U/L (38-126); Aspartate Aminotransferase 20 IU/L (17-59); BUN Creatinine Ratio 34.5 (6-22); Bilirubin Total 0.4 mg/dL (0.2-1.3); Blood Urea Nitrogen 30 mg/dL (9-20); Calcium 8.5 mg/dL (8.4-10.2); Carbon Dioxide 31 mmol/L (22-32); Chloride 101 mmol/L (98-107); Estimated Glomerular Filt Rate > 60.0 mL/min (>60); Globulin 2.7 g/dL (1.7-4.1); Glucose 123 mg/dL (80-110); HEMOLYSIS 19 (0-50); Potassium 4.3 mmol/L (3.4-5.1); Sodium 135 mmol/L (137-145); Total Protein 5.5 g/dL (6.3-8.2)
[2020-09-04] MEDS: ACETAMINOPHEN 325 MG TABLET 650 MG PO (05:59)
[2020-09-04 06:00] VITALS: BP 161/106; PULSE 64; RESP 20; TEMP 37; O2SAT 96
[2020-09-04 06:14] VITALS: BP 165/106; PULSE 65
[2020-09-04] MEDS: LOSARTAN 50 MG TABLET PO (06:14)
[2020-09-04] MEDS: hydroCHLOROthiazide 25 MG TABLET 12.5 MG PO (06:15)
[2020-09-04] MEDS: FAMOTIDINE 20 MG TABLET PO (08:03)
[2020-09-04] MEDS: ENOXAPARIN 40 MG/0.4 ML SYRINGE SUBCUT (08:03)
[2020-09-04] MEDS: DEXAMETHASONE 10 MG/ML VIAL 6 MG IV (08:03)
[2020-09-04] MEDS: SODIUM CHLORIDE 0.9% FLUSH 10 ML IV (08:04)
[2020-09-04 08:40] VITALS: BP 176/102; PULSE 81; O2SAT 94
--- NOTE | 2020-09-04 09:49 | OT.IPNOTE ---
Chart reviewed and discussed with Nursing. Per nursing, pt showered yesterday with set up of items. Pt is mobilizing in the room without assist and currently on 2L. No OT needs at this time and pt planned for d/c today per nursing.
[2020-09-04] MEDS: AMLODIPINE 5 MG TABLET PO (10:25)
--- NOTE | 2020-09-04 11:08 | CM.DPC ---
DCP: continued: Spoke with Dr. Tamayo and care team members during Team Rounds. Pt is now poised for a d/c to home later today but is still on 02 and will need this at d/c. Alerted team to fact that pt has no insurance and thus any oxygen would need to be at a private pay. Spoke then with /Татьяна who was setting up the oxygen and let her know this (she was not until that point aware of this). Faxed her the current face sheet. She readily agreed to reach out to vendors to find one who might accept the private pay and then planned to discuss details with pt's (who manages the couple's finances). Spoke then to pt in his room, via phone. Explained above and that likely monthly payment for the oxygen would be $200 a month or <. He stated this sounded manageable and was thankful for the assist of the RT team. He confirmed that his would be picking him up at d/c and that he was hopeful he would be released today but the doctor said he could not promise this for sure. Received an update from Татьяна/. She stated that all was in place for the oxygen and that payment would be $159 month. She had discussed this in detail with pt's . She stated she would need final orders from the physician for the home o2 and referred her to RAIMUNDO Joshua to coordinate same. Josiane and Dr. Gutierrez are updated. P: home, likely later today and with home 02 as per above.
[2020-09-04 12:00] VITALS: BP 171/105; PULSE 105; O2SAT 94
--- NOTE | 2020-09-04 12:27 | PT-IP ANOTE ---
per OT: nurse informed her that pt is independent with mobility in his room. Checked with nurse and stated that pt is going home today and PT not to see pt.
--- NOTE | 2020-09-04 13:17 | PC.NURSE ---
Addendum entered by Josiane Chadwick R.N. 09/04/20 14:42: Went over dc instructions and medications with patient, questions answered. Patient taken via wc to vehicle driven by spouse. Patient had all belongings and oxygen concentrator. Original Note: Patient alert oriented denies pain, desats to 80% with activity but sats quickly recover after rest to 93-94% on 2L. Patient reports feeling good and wanting to discharge home. Patient steady on feet and independent with all ADL'S. BP elevated to 176/102, Dr. Gutierrez aware and 5mg Norvasc given PO.
--- NOTE | 2020-09-04 17:12 | PM.DS.1 ---
History of Present Illness History of Present Illness Chief complaint: REFERRED BY PCP FOR LUNG CHECK, COVID+ Narrative: Per H and P from Diogenes Herzogan on 08/24/20: José Miguel Cabrera is a 65-year-old male with a past medical history of hypertension who presented to the emergency room with shortness of breath. Patient's symptoms initially started about 2 weeks ago with cough, fevers, and nasal congestion. He presumed he had COVID but was actually starting to feel better. He had been in [place] for the prior 5 months as the patient [place] there during the winter. His was able to obtain the COVID-19 vaccine because she was considered to be in a high-risk population, however the patient did not qualify for the vaccine yet. They both drove up from [place] last weekend. He obtained COVID-19 testing the day after he arrives which resulted with a positive test. His was also tested and was positive but has milder symptoms. This morning he woke up with worsened shortness of breath which he had not previously experienced, and was referred to the emergency room for further evaluation. The patient's primary care provider is in [place], whom he saw approximately 6 months ago. He has some chest pain primarily with coughing, but not at rest and not with exertion. He denies any palpitations, diaphoresis, nausea, vomiting, diarrhea. He denies any loss in his taste or smell. In the emergency room, he was markedly tachypneic, and hypoxic. O2 saturation on arrival was 82%. He was rapidly increased and placed on heated high-flow nasal cannula, 45 liters/minute at 70% with rapid improvement in his breathing. He was borderline febrile with a temperature of a 100.5?, mildly hypertensive. Initial laboratory evaluation shows an unremarkable CBC, D-dimer mildly elevated at 634 but below an age-appropriate cut off, ferritin of 1620, mild transaminitis with AST and ALT less than 100. LDH was elevated at 1902. CRP was elevated at 17.9. ProBNP was mildly elevated at 207. Procalcitonin was indeterminate at 0.42. Chest x-ray shows bilateral opacities consistent with a viral pneumonia and COVID-19. Discharge Providers Provider Date of admission: 08/24/20 15:30 Discharge Date: 09/04/20 Consults: 08/24/20 16:50 Consult to Respiratory Therapy Evaluate & Treat Comment: Physician Instructions: Evaluate and treat 08/29/20 09:37 Consult After Hours PICC Line RN Routine Comment: 09/03/20 10:25 Consult to Occupational Therapy Evaluate & Treat Comment: Physician Instructions: Evaluate and treat Consult to Physical Therapy Evaluate & Treat Comment: Physician Instructions: Evaluate and Treat Discharge provider: Nixon Gutierrez MD Summary Hospital Course Discharge Diagnosis: 1. Acute hypoxemic respiratory failure due to COVID 19 pneumonia 2. Hypertension Hospital Course: Mr. Cabrera came in with shortness of breath and was found to be in respiratory failure with hypoxemia. He had symptoms initially over 2 weeks prior to hospital presentation but was initially diagnosed approximately 08/18-08/19. He presented on 08/24 with the above symptoms and was admitted with severed COVID pneumonia. He did require high flow for over a week with high FiO2 and O2 liter requirements. He was treated with IV dexamethasone and remdesivir. After approximately a week of treatment he began to have steady improvement in his symptoms. He did get a CT angiogram that was negative for PE. On day of discharge he was feeling much improved and felt well enough to ambulate on 2L of oxygen. He was discharged with oxygen. He was recommended to remain in isolation as able for another week which will be over 20 days since initial diagnosis. He was recommended to wait 90 days after this treatment to get his COVID vaccine. He did have high blood pressure in the hospital and he was given a prescription for amlodipine in addition to his home medications at discharge. Code status: Full Status at Discharge Cognitive/behavioral status at discharge: oriented Functional status at discharge: independent ambulation Overall status at discharge: patient is progressing back to baseline Time Spent with Patient Time spent: Less than 30 minutes Exam Vital Signs (past 8 hours): - 09/04/20 12:00 Pulse Rate 105 H Blood Pressure 171/105 H Pulse Oximetry 94 Fraction of Inspired Oxygen 35 Oxygen Delivery Method Nasal Cannula Oxygen Flow Rate 2 Narrative Exam Narrative: GENERAL: alert and oriented x3. in no apparent distress. HEART: regular rate and rhythm without murmur LUNGS: improving air movement bilaterally, no wheezes, rhonchi, rales ABDOMEN: soft, bowel sounds normal, nontender, no organomegaly. EXTREMITIES: no edema NEURO: moving all extremities PSYCH: pleasant mood Objective Labs Result Diagrams: 09/04/20 04:34 09/04/20 04:34 Labs: Laboratory Results - last 24 hr 09/04/20 09/04/20 04:34 04:34 WBC 11.6 H RBC 4.68 Hgb 13.4 L Hct 40.1 L MCV 85.6 MCH 28.7 MCHC 33.5 RDW 13.7 Plt Count 220 Neut % (Auto) 77.3 H Lymph % (Auto) 12.7 L Highland % (Auto) 9.2 Eos % (Auto) 0.3 L Baso % (Auto) 0.5 Neut # (Auto) 9000 H Lymph # (Auto) 1500 [place] # (Auto) 1100 H Eos # (Auto) 0 Baso # (Auto) 100 Sodium 135 L Potassium 4.3 Chloride 101 Carbon Dioxide 31 BUN 30 H Creatinine 0.87 Estimated GFR > 60.0 BUN/Creatinine Ratio 34.5 H Glucose 123 H Calcium 8.5 Magnesium 2.0 Total Bilirubin 0.4 AST 20 ALT 38 Alkaline Phosphatase 65 Total Protein 5.5 L Albumin 2.8 L Globulin 2.7 Albumin/Globulin Ratio 1.0 PFSH Medical History Hypertension Surgical History H/O oral surgery Family History Mother Hypertension Social History household members: spouse Smoking Status: Former smoker Discharge Plan Discharge Plan Patient Disposition: Home Provider Discharge Comment: Mr. Cabrera was admitted with shortness of breath. He was confirmed to have severed COVID pneumonia. He initially required very high amounts of oxygen. He was treated with remdesivir and dexamethasone. He initially had slow improvement, but with time progressively felt better. On day of discharge he was feeling well, and only requiring low levels of oxygen (2 liters). He will be discharged on oxygen at home. He should remain in isolation through September 11. He had high blood pressure here and had a medication added to help control his blood pressure. Discharge orders & Medications Prescriptions: New amlodipine 5 mg tablet 5 mg PO DAILY Qty: 30 RF: 0 Continued losartan-hydrochlorothiazide 50-12.5 mg Tablet 1 tab PO DAILY RF: 0 Diet/Activity/Treatments Diet: Diet as Tolerated Visit Report/Discharge Packet Instructions: Amlodipine, DI for COVID-19 (Suspected or Confirmed ) Quality MIPS - DC The patient has current or prior documentation of left ventricular ejection fraction (LVEF) less than 40%, or moderate or severely depressed left ventricular systolic function.: No
== END 2020-09-04 14:00 | disposition home or self-care (01) | DRG 177 ==
LOC: ED 15:31 → AC 15:31 → ICU 08-25 10:10
PROVIDERS: Emergency Medicine; Internal Medicine; Nurse Practitioner Family; Admitting Provider Internal Medicine; Emergency Provider Emergency Medicine; Visit Provider Internal Medicine
DX: U07.1 COVID-19 (principal); J12.82 Pneumonia due to coronavirus disease 2019; J96.01 Acute respiratory failure with hypoxia; I10 Essential (primary) hypertension; T80.89XA Other complications following infusion, transfusion and therapeutic injection, initial encounter; M25.521 Pain in right elbow; Z87.891 Personal history of nicotine dependence
CPT/HCPCS: 36415; 36569; 36592; 36600; 71045; 71275; 80048; 80053; 82550; 82553; 82728; 82805; 83605; 83615; 83735; 83880; 84145; 84484; 85025; 85027; 85379; 86140; 87040; 87150; 87205; 87633; 87797; 93005; 93010; 93971; 94762; 96365; 97161; 97165; 99285; 99291; A9270; J1100; J1642; J1650; J1940; Q9967